=== PATIENT | female | born 1965 | race Caucasian/White ===

== ENCOUNTER → 2019-06-13 17:32 | Outpatient (CLI) | payer BC, SELFPAY ==
--- NOTE | ~2019-06-13 | MM_ITS ---
EXAMINATION: MM screening greg BI w danelle HISTORY: Screening mammogram TECHNIQUE: Craniocaudal and mediolateral oblique 3-D tomosynthesis images were obtained and synthetic 2-D images were generated. CAD analysis was submitted and interpreted. COMPARISON: No prior mammogram is available for comparison at this institution. BREAST PARENCHYMAL COMPOSITION: There are scattered areas of fibroglandular density. FINDINGS: There are 2 clusters of grouped microcalcifications of the right; magnification views are r ecommended. Small circumscribed masses are noted in the posterior aspect of each breast on MLO view, the right no dule included in the craniocaudal view, situated in the outer mid right breast. Bilateral diagnostic mammography is recommended, including magnification views of right sided microca lcifications.. IMPRESSION: 1. Right-sided microcalcifications; right diagnostic mammogram with magnification views is recommende d. Bilateral compression views and ultrasound of bilateral posterior breast masses are recommended. 2. Recommend bilateral diagnostic mammography and bilateral breast ultrasound examination. BI-RADS Category 0: Incomplete: Needs additional imaging evaluation. Reviewed, dictated and finalized at location A. SHAPER TOP IMPRESSION: 1. Right-sided microcalcifications; right diagnostic mammogram with magnificati on views is recommended. Bilateral compression views and ultrasound of bilateral posterior breast masses are recommended. 2. Recommend bilateral diagnostic mammography and bilateral breast ultrasound e xamination. BI-RADS Category 0: Incomplete: Needs additional imaging evaluation.
== END ==
PROVIDERS: PCP Physician Assistant; Visit Provider Physician Assistant
DX: Z12.31 Encounter for screening mammogram for malignant neoplasm of breast (principal); R92.8 Other abnormal and inconclusive findings on diagnostic imaging of breast
CPT/HCPCS: 77063; 77067

== ENCOUNTER → 2019-07-01 09:27 | Outpatient (CLI) | payer BC, SELFPAY ==
--- NOTE | ~2019-07-01 | MMUS_ITS ---
EXAMINATION: MM diagnostic mammo BI, US breast BI limited HISTORY: Follow-up right breast calcifications and bilateral breast masses TECHNIQUE: Additional 3-D tomosynthesis images of were performed and synthetic 2-D images were genera karina. CAD analysis was submitted and interpreted. High resolution bilateral breast ultrasound was perf ormed. COMPARISON: 06/13/2019 FINDINGS: MAMMOGRAPHIC FINDINGS: Breast composed of scattered areas of fibroglandular density. There are masses in the upper outer benito drants of both breasts, most likely benign intramammary lymph nodes. Right breast calcifications have a punctate monomorphic appearance, likely benign. ULTRASOUND: Right breast ultrasound: Normal heterogeneous echotexture without focal solid or cystic mass. Left breast ultrasound: At 2:00, 11 cm from the nipple, there is an 11 mm lymph node. At 12:00, 5 cm from the nipple there is a 8 mm cyst. IMPRESSION: 1. Probable benign right breast calcifications. Benign-appearing bilateral breast masses. No evidence for malignancy in the left breast. 2. Recommend 6 month follow-up right breast ultrasound and diagnostic right mammogram BI-RADS category 3, probably benign findings. Reviewed, dictated and finalized at location A. STICS TEAM LEADER IMPRESSION: 1. Probable benign right breast calcifications. Benign-appearing bilateral darius st masses. No evidence for malignancy in the left breast. 2. Recommend 6 month follow-up right breast ultrasound and diagnostic right [facility] mogram BI-RADS category 3, probably benign findings. IMPRESSION: 1. Probable benign right breast calcifications. Benign-appearing bilateral darius st masses. No evidence for malignancy in the left breast. 2. Recommend 6 month follow-up right breast ultrasound and diagnostic right greg mogram BI-RADS category 3, probably benign findings.
== END ==
PROVIDERS: PCP Physician Assistant; Visit Provider Physician Assistant
DX: R92.8 Other abnormal and inconclusive findings on diagnostic imaging of breast (principal)
CPT/HCPCS: 76642; 77066

== ENCOUNTER 2020-04-19 08:00 | Outpatient (RCR) | payer BC, SELFPAY ==
--- NOTE | 2020-01-23 10:55 | STOPEVAL ---
SPEECH THERAPY INITIAL EVALUATION: Thank you for referring Freda Bhatti to [facility].? The patient is scheduled to be seen for therapy? 1-2x/week for 4 weeks to focus on improving speech and swallow as outlined below. Please review, sign, date and return this plan of care ELIO. I agree with and certify that the following plan of care is medically necessary. Referring Physician Date Attending Provider: PHYSICIAN NOT ON STAFF *ST Outpatient Evaluation Start: 01/21/20 16:37 Freq: Status: Active Protocol: Document 01/21/20 14:30 BECHERERT (Rec: 01/21/20 16:42 BECHERERT [email or web address]) Therapy Assessment Status Assessment Status Assessment Status Evaluation Outpatient Past Medical History Past Medical History Source of Past Medical History Patient Neurological History Hx Neurological Disorders No Significant History Other History Hx Cancer Yes: tongue Hx Chemotherapy Yes Hx Radiation Therapy Yes: 30+ treatment r/t tongue CA; last tx 12-03-19 Evaluation Information Problem Diagnosis tongue CA with surgery Onset 07-08-19 Additional Evaluation Detail Pt presents with a diagnosis of lingual cancer with subsequent surgery on 07-08-2019 , chemotherapy, and radiation. She reports that she completed 2 rounds of chemotherapy and approximately 30 radiation treatments which ended 11-07-19. Pt states that her swallow ability is not too bad stating she has to adjust a little when eating . She is currently on regular liquids and soft foods. She also reports that her spouse can occasionally have difficulty understanding her. She's also noticed that she has difficulty being understood on the telephone. 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 She is currently working from home. Subjective Information Pt c/o dry mouth but is Query Text:As Reported By Patient/ starting to use artificial Family saliva products; she has a (L) sided neck scar from surgery
--- NOTE | 2020-01-30 09:20 | PTOPEVAL ---
PHYSICAL THERAPY EVALUATION AND PLAN OF TREATMENT 01-30-2020 Thank you for referring Freda Bhatti to [facility], for the diagnosis of head/neck lymphedema.? She is scheduled to be seen for Physical Therapy? 2 x/week for 6 weeks. Please review, sign, date and return this plan of care ELIO. I agree with and certify that the following plan of care is medically necessary. Referring Physician Date Attending Provider: Dr. Rich Jackson *PT Outpatient Evaluation Start: 01/30/20 08:11 Document 01/30/20 08:05 RAMOS (Rec: 01/30/20 09:20 RAMOS [id number]) Therapy Assessment Status Assessment Status Assessment Status Evaluation Outpatient Past Medical History Past Medical History Source of Past Medical History Patient Neurological History Hx Neurological Disorders No Significant History Cardiovascular History Hx Hypercholesterolemia Yes: med Respiratory History Hx Other Respiratory Disorders Yes: previous smoker Gastrointestinal History Hx Gastroesophageal Reflux Disease Yes: meds Hx Other Gastrointestinal Disorders Yes: had feeding tube- tender abdomen where was Genitourinary History Hx Other Genitourinary Disorders Yes: constipation due to diet and prev pain meds Musculoskeletal History Hx Arthritis Yes: arthritis L knee; hand and wrist pain; Hx Orthopedic Surgery Yes: R THR; Hx Other Musculoskeletal Disorders Yes: cervical pain; headaches- less than previously had Hematological History Hx Hematological Disorders No Significant History Endocrine History Hx Other Endocrine Disorders Yes: to have thyroid test at next dr jurado HEENT History Hx Sinus Problems Yes: allergies- seasonal allergies- over counter meds Integumentary History Hx Other Skin Disorders Yes: red rash over neck/ treatment area, comes/goes Reproductive History Hx Reproductive Disorders No Significant History Other History Hx Cancer Yes: tongue Hx Chemotherapy Yes Hx Radiation Therapy Yes: 30+ treatment r/t tongue CA; last tx 12-03-19 Evaluation Information Problem Diagnosis lymphedema Onset July 2019 Prior Level of Function Activity Level (Last 3 Months) 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
--- NOTE | 2020-02-24 14:46 | STOPEVAL ---
SPEECH THERAPY PROGRESS NOTE AND PLAN OF CAR UPDATE: Thank you for referring Freda Bhatti to [facility].?The patient is scheduled to be seen for continued speech therapy? 1x/week for 4 weeks. Please review, sign, date and return this plan of care ELIO. I agree with and certify that the following plan of care is medically necessary. Referring Physician Date Attending Provider: PHYSICIAN NOT ON STAFF *ST Outpatient RE Evaluation Start: 01/21/20 16:37 Freq: Status: Active Protocol: Document 02/24/20 09:42 BECHERERT (Rec: 02/24/20 10:00 BECHERERT [email or web address]) Therapy Assessment Status Assessment Status Assessment Status Re-evaluation Outpatient Past Medical History Past Medical History Source of Past Medical History Patient Neurological History Hx Neurological Disorders No Significant History Cardiovascular History Hx Hypercholesterolemia Yes: med Respiratory History Hx Other Respiratory Disorders Yes: previous smoker Gastrointestinal History Hx Gastroesophageal Reflux Disease Yes: meds Hx Other Gastrointestinal Disorders Yes: had feeding tube- tender abdomen where was Genitourinary History Hx Other Genitourinary Disorders Yes: constipation due to diet and prev pain meds Musculoskeletal History Hx Arthritis Yes: arthritis L knee; hand and wrist pain; Hx Orthopedic Surgery Yes: R THR; Hx Other Musculoskeletal Disorders Yes: cervical pain; headaches- less than previously had Hematological History Hx Hematological Disorders No Significant History Endocrine History Hx Other Endocrine Disorders Yes: to have thyroid test at next dr jurado HEENT History Hx Sinus Problems Yes: allergies- seasonal allergies- over counter meds Integumentary History Hx Other Skin Disorders Yes: red rash over neck/ treatment area, comes/goes Reproductive History Hx Reproductive Disorders No Significant History Other History Hx Cancer Yes: tongue Hx Chemotherapy Yes Hx Radiation Therapy Yes: 30+ treatment r/t tongue CA; last tx 12-03-19 Pain Assessment Timing of Pain Assessment Timing of Pain Assessment Assessment Pain Scale Pain Scale Used Numeric (1 - 10) Self Report Pain Assessment Left Lateral Tongue Reported Pain Level 3 Pain Description Burning,Sharp,Stabbing,With Movement Pain Radiation Left Jaw Pain Frequency Intermittent Greatest Pain Intensity 10 Pain Level Goal 1 Pain Aggravating Factors Exercise/Activity Bila
--- NOTE | 2020-03-09 15:42 | PCSTNOTE ---
Pt feels that she has achieved her goals at this point. She doesn't feel like she needs to return for regularly scheduled visits as the plan of care has outlined. Since pt's status has fluctuated, she will not be discharged officially until the plan of care expires on 03-25-20 in the event she has another set back.
--- NOTE | 2020-03-17 16:20 | PTOPEVAL ---
PHYSICAL THERAPY RE-EVALUATION AND UPDATED PLAN OF CARE 03-17-2020 Refer to the clinical summary below for the comparison from initial evaluation. Thank you for referring Freda Bhatti to [facility].? Therapy is to continue? 2 x/week for 5 weeks. Please review, sign, date and return this plan of care ELIO. I agree with and certify that the following plan of care is medically necessary. Referring Physician Date Attending Provider: Dr. Rich Jackson *PT Outpatient Re-Evaluation Document 03/17/20 13:00 RAMOS (Rec: 03/17/20 16:20 RAMOS [email or web address]) Subjective Information Freda reports: is eating Query Text:As Reported By Patient/ better by taking oxycodone Family before eating; still eating soft foods, continues to have pain, but less; continues to have headaches, feel scar and neck are still really tight and was doing better moving her tongue, then when moved mouth wrong one day, there was a pop and now tighter on the side of her tongue. She has been using her home intermittent compression pump and is working with the insurance to obtain the night garment. Also trying to get a wedge to sleep on; She wants to continue PT treatment. Pain Assessment Timing of Pain Assessment Timing of Pain Assessment Assessment Pain Scale Pain Scale Used Numeric (1 - 10) Self Report Pain Assessment Left Lateral Tongue Reported Pain Level 3 Lowest Pain Intensity 3 Greatest Pain Intensity 7 Other Pain Aggravating Factors eating- taking pain meds prior to eating; helps pain with meals Additional Pain Comments headaches daily last few minutes to 30 minutes, ease with tylenol Bilateral Neck Reported Pain Level 3 Pain Score Pain Score 3,3: Self Report Interventions Used Interventions Used By Clinicians Exercise Cervical and Lumbar ROM Cervical ROM Cervical ROM Comments sitting active cervical rotation to the R 60'/ L 60'- both report of tightness in neck Lymphedema Evaluation Skin Inspection Location Head/Neck/Face Skin Observations Radiation Discoloration Tissue Texture
--- NOTE | 2020-03-29 14:29 | PCSTNOTE ---
SPEECH THERAPY DISCHARGE: Attending Provider: PHYSICIAN NOT ON STAFF Patient:rFeda Bhatti Date of :1965 Pt presented with a diagnosis of lingual cancer with subsequent surgery on 07-08-2019, chemotherapy, and radiation. She reported that she completed 2 rounds of chemotherapy and approximately 30 radiation treatments which ended 11-07-19. Pt stated her swallow ability was not too bad stating she had to adjust a little when eating . She is currently on regular liquids but a soft diet. She also reported that her spouse occasionally has difficulty understanding her and has decreased intelligibility on the telephone. 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 Pt c/o dry mouth but has started to use artificial saliva products; a (L) sided neck scar was noted from surgery that took tissue from that area and replaced in her tongue. She reported decreased neck ROM and (R) sided lymphedema. She stated it feels like someone has their hands around her neck. Upon initial evaluation, the pt presented with mild dysarthria and dysphagia with oral stage involvement as well as potential pharyngeal involvement. Pt was taught HEP/compensatory strategies for improving speech intelligibility as well as swallowing exercises as it is felt the pt may have future potential for increased of dysphagia due to the 30 radiation treatments. Pt completed 6 sessions and is independent with the HEP. She was encouraged to continue HEP (especially swallow exercises). Pt verbalized and demonstrated understanding. Pt feels that she has achieved her goals and doesn't need to return for any further treatments. Since pt's status briefly fluctuated i.e. mouth pain which caused temporary increased slurring, she was not discharged officially until the plan of care on 03-25-20 in the event she has another set back. [ End ] Patient has not returned for any further treatments since 03/09/2020, therefore, she will be discharged at this time. The goals have been met. Thank you for referring this patient to [facility]. Please review, sign, date and return this discharge summary ELIO. I have been updated about the patient's current status and I agree with discharge from the above service at this time. Referring Physician Date
--- NOTE | 2020-04-19 08:53 | PTOPEVAL ---
PHYSICAL THERAPY DISCHARGE 04-19-2020 Refer to the clinical summary below for the comparison to the last reevaluation. Mrs. Bhatti agrees to today's discharge from PT services. Thank you for referring Freda Bhatti to [facility].? Please review, sign, date and return this discharge ELIO. I agree with and certify that the following plan of care is medically necessary. Referring Physician Date Attending Provider: Dr. Rich Jackson PT Outpatient Discharge Document 04/19/20 08:05 RAMOS (Rec: 04/19/20 08:53 RAMOS [email or web address]) Subjective Information Freda reports: feels like Query Text:As Reported By Patient/ she has plateaued with her Family improvements; has been using her home pump, doing her mouth and neck exercises and self massage; has the tape to put on her neck; has not gotten the night garment or wedge for sleeping yet--waiting to see if her insurance will pay for it; has been eating a little more, still taking pain med before eating, still using the protein drinks for nutrition; have had headaches less-- about 3 x/ last week, did not take tylenol every time, headaches last about 30 minutes; 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 Pain Assessment Timing of Pain Assessment Timing of Pain Assessment Assessment Pain Scale Pain Scale Used Numeric (1 - 10) Self Report Pain Assessment Left Lateral Tongue Reported Pain Level 2 Pain Description Soreness,Tender on Palpation, Tightness Radicular Pain Location headaches 3x/wk, last about 30 min Pain Frequency Chronic,Continuous Other Pain Description L neck-anterior and posterior, base tongue, mandible and tight over incision Lowest Pain Intensity 2 Greatest Pain Intensity 8 Pain Aggravating Factors Exercise/Activity Other Pain Aggravating Factors eating; issues with getting neck comfortable with sleeping Pain Behaviors Grimacing,Guarding Bilateral Neck Reported Pain Level 2 Pain Frequency Chronic Pain Score Pain Score
== END 2020-04-19 10:54 | disposition home or self-care (01) ==
LOC: ANHPT 08:00
PROVIDERS: PCP Physician Assistant
DX: C02.9 Malignant neoplasm of tongue, unspecified (principal); R47.9 Unspecified speech disturbances; I89.0 Lymphedema, not elsewhere classified
CPT/HCPCS: 29581; 92507; 92522; 92526; 92610; 97016; 97110; 97140; 97162

== ENCOUNTER → 2020-05-10 08:01 | Outpatient (CLI) | payer BC, SELFPAY ==
--- NOTE | ~2020-05-10 | MM_ITS ---
EXAMINATION: MM diagnostic greg RT w danelle HISTORY: Follow-up for probably benign right breast calcifications TECHNIQUE: 3-D tomosynthesis images of the right breast were performed and synthetic 2-D images were generated. Magnification views are also obtained. CAD analysis was submitted and interpreted. COMPARISON: 07/01/2019, 06/13/2019 BREAST PARENCHYMAL COMPOSITION: The breasts are heterogeneously dense, which may obscure small masses . FINDINGS: There are two stable groups of punctate and likely dystrophic calcifications in the upper o uter quadrant of the breast. There is been no suspicious interval change. No suspicious mass or archi tectural distortion are identified. IMPRESSION: 1. Stable, probably benign right breast calcifications. 2. Given one year of interval stability, recommend 12 month followup right diagnostic mammogram. Of n ote, patient is due for left breast screening in one month. BI-RADS category 3, probably benign findings. Reviewed, dictated and finalized at location A. ER OVER IMPRESSION: 1. Stable, probably benign right breast calcifications. 2. Given one year of interval stability, recommend 12 month followup right diag nostic mammogram. Of note, patient is due for left breast screening in one radha h. BI-RADS category 3, probably benign findings.
== END ==
PROVIDERS: PCP Physician Assistant; Visit Provider Physician Assistant
DX: R92.8 Other abnormal and inconclusive findings on diagnostic imaging of breast (principal)
CPT/HCPCS: 77061; 77065; G0279

== ENCOUNTER → 2020-07-03 01:15 | Outpatient (CLI) | payer BC, SELFPAY ==
[2020-07-03 23:34] LABS: SARS-CoV-2 RNA PCR Negative
== END ==
PROVIDERS: PCP Physician Assistant; Visit Provider Internal Medicine Gastroenterology
DX: Z01.812 Encounter for preprocedural laboratory examination (principal); Z20.822 Contact with and (suspected) exposure to COVID-19
CPT/HCPCS: C9803; U0003; U0005

== ENCOUNTER → 2020-07-21 14:18 | Outpatient (CLI) | payer BC, SELFPAY ==
--- NOTE | ~2020-07-21 | MM_ITS ---
EXAMINATION: MM screening greg LT w danelle HISTORY: Screening TECHNIQUE: Craniocaudal and mediolateral oblique 3-D tomosynthesis images were obtained and synthetic 2-D images were generated. CAD analysis was submitted and interpreted. COMPARISON: 06/13/2019 BREAST PARENCHYMAL COMPOSITION: There are scattered areas of fibroglandular density. FINDINGS: There is no evidence of suspicious mass, calcification, or architectural distortion to sugg est malignancy in the left breast. There has been no suspicious interval change. IMPRESSION: 1. No mammographic evidence of malignancy. 2. Recommend routine screening mammography in one year. BI-RADS Category 1: Negative Reviewed, dictated and finalized at location A.
== END ==
PROVIDERS: PCP Physician Assistant; Visit Provider Physician Assistant
DX: Z12.31 Encounter for screening mammogram for malignant neoplasm of breast (principal)
CPT/HCPCS: 77063; 77067

== ENCOUNTER → 2021-11-01 16:46 | Outpatient (CLI) | payer BC, SELFPAY ==
--- NOTE | ~2021-11-01 | MM_ITS ---
EXAMINATION: MM screening [facility] BI w danelle HISTORY: Screening TECHNIQUE: Craniocaudal and mediolateral oblique 3-D tomosynthesis images were obtained and synthetic 2-D images were generated. CAD analysis was submitted and interpreted. COMPARISON: Comparison to multiple prior studies sequentially, with oldest reviewed study dated 11/2019. BREAST PARENCHYMAL COMPOSITION: There are scattered areas of fibroglandular density. FINDINGS: Stable benign-appearing breast calcifications. There is no evidence of suspicious mass, jonny cification, or architectural distortion to suggest malignancy in either breast. There has been no naida picious interval change. IMPRESSION: 1. No mammographic evidence of malignancy. 2. Recommend routine screening mammography in one year. BI-RADS Category 2: Benign finding(s). Reviewed, dictated and finalized at location A.
== END ==
PROVIDERS: PCP Physician Assistant; Visit Provider Physician Assistant
DX: Z12.31 Encounter for screening mammogram for malignant neoplasm of breast (principal)
CPT/HCPCS: 77063; 77067

== ENCOUNTER 2022-01-20 09:26 | Emergency (ER) | payer BC, SELFPAY ==
[2022-01-20] VITALS (8 sets, daily range): BP systolic 98–146; BP diastolic 80–103; PULSE 64–78; RESP 16–18; TEMP 36.5–36.8; O2SAT 95–98
--- NOTE | ~2022-01-20 | CT_ITS ---
EXAMINATION: CT abdomen pelvis w con DATE: 01/20/2022 11:26 INDICATION: Left lower quadrant abdominal pain TECHNIQUE: Computed tomography (CT) of the abdomen and pelvis was performed with 100 mL Omnipaque-350 intravenous contrast. Automated exposure control and iterative reconstruction technique were employe d. The dose-length product was 354.76 mGy-cm. COMPARISON: None FINDINGS: Mild discoid atelectasis in the bilateral lower lungs. Heart size is normal. No pericardial or pleura l effusion. Liver, gallbladder, spleen, pancreas and bilateral adrenal glands are normal. Bilateral r enal cysts, the largest measuring 2.8 cm in the right kidney. There is moderate colonic diverticulosi s with a sigmoid predominance. There is no adjacent inflammatory change to suggest diverticulitis. S mall bowel and appendix are normal. Bladder, uterus and bilateral adnexa are unremarkable. No free in traperitoneal gas or fluid. No pathologically enlarged abdominal or pelvic lymphadenopathy. Mild lumb ar spondylosis. Right total hip arthroplasty. IMPRESSION: 1. No acute intra-abdominal/pelvic process. 2. Diverticulosis. Reviewed, dictated and finalized at location A.
--- NOTE | 2022-01-20 10:09 | ED.ABDPAIN ---
HPI - Abdominal Pain General Chief Complaint: Abdominal Pain Stated Complaint: constipation Time Seen by Provider: 01/20/22 09:54 Source: patient and RN notes reviewed Mode of arrival: ambulatory Limitations: no limitations History of Present Illness HPI narrative: This is a 56 year old female who presents for evaluation of abdominal pain and constipation. PAtient states she normally has large bowel movement every 3 days. She has been having bowel movements but they have been small amounts. She reports small bowel movement today. She also reports mild left lower abdominal pain fo a [address] [facility] but she was referred to ER. She denies nausea, vomiting, dysuria, hematuria, fever or chills. She reports pain 06/16. Related Data Home Medications Medication Instructions Recorded Confirmed alprazolam 0.5 mg tablet 0.5 mg PO TID PRN Anxiety 06/21/20 06/21/20 atorvastatin 10 mg tablet 10 mg PO HS 06/21/20 06/21/20 bupropion HCl 300 mg 24 hr tablet, 300 mg PO DAILY 06/21/20 06/21/20 extended release escitalopram oxalate 20 mg tablet 20 mg PO HS 06/21/20 06/21/20 esomeprazole magnesium 40 mg 40 mg PO DAILY 06/21/20 06/21/20 capsule,delayed release gabapentin 300 mg capsule 300 mg PO TID 06/21/20 06/21/20 trazodone 50 mg tablet 50 mg PO HS 06/21/20 06/21/20 Allergies Allergy/AdvReac Type Severity Reaction Status Date / Time adhesive Allergy Rash Verified 01/20/22 10:31 SEASONAL ALLERGIES Allergy Mild Sneezing Uncoded 01/20/22 10:31 UNKNOWN ABX Allergy RASH Uncoded 01/20/22 10:31 Review of Systems Review of Systems: All systems reviewed & are unremarkable except as noted in HPI and below Constitutional: Constitutional: Denies chills, Denies fatigue and Denies fever(s) Gastrointestinal: Gastrointestinal: Reports abdominal pain, Reports constipation, Denies nausea and Denies vomiting Genitourinary: Genitourinary: Denies dysuria, Denies pelvic pain and Denies flank pain Musculoskeletal: Musculoskeletal: Reports back pain PMFSH Past Medical History Medical History (Updated 01/20/22 @ 12:02 by Jennifer Mg MD) History of tongue cancer Surgical History Surgical History (Updated 01/20/22 @ 12:00 by Jennifer Mg MD) S/P partial glossectomy Social History Social History Smoking packs per day: 1 Smoking cigarettes per day: 20.0 Years smoked: 30 Smoking pack-years: 30.00 Smoking status: Former smoker Gender identity (if verbalized by the patient): Female Spiritual care concerns: No Exam Const: General: no acute distress and alert Nutritional Appearance: well nourished Orientation/consciousness: patient oriented x3 HENMT: Head: normal to inspection Eyes: EOM: EOMs intact bilaterally Chest: Chest palpation & inspection: normal inspection of the chest Resp: Effort & Inspection: normal respiratory effort Auscultation: clear to auscultation bilaterally Cardio: Rate: regular rate Rhythm: regular rhythm Heart sounds: no murmurs GI: GI Palp: Yes Soft to palpation, Yes Tenderness to palpation present (GI) (LLQ), No Guarding due to palpation present (GI) and No Rigid due to palpation Auscultation: normal bowel sounds Back/Spine/Pelvis: Back: no CVA tenderness Skin: General skin exam: normal color Rashes: no rashes Neuro: General: patient oriented x3, moves all extremities and CN's II-XI intact bilaterally Extrem: General: normal to inspection Psych: Mental Status: mental status grossly normal Course Reevaluation(s) Reevaluation #1: I Discussed with patient labs and CT are unremarkable. I Discussed discharge plan and follow up with PCP for possible GI referral. Date: 01/20/22 Time: 12:00 Vital Signs Vital signs: Vital Signs Temperature 97.7 F 01/20/22 09:30 Pulse Rate 78 01/20/22 09:30 Respiratory Rate 16 01/20/22 09:30 Blood Pressure 146/103 H 01/20/22 09:30 Pulse Oximetry 98 01/20/22 09:30 Oxygen Delivery Room Air
[2022-01-20 10:21] LABS: Basophils Percent Auto 0.4 % (0.2-1.2); Eosinophils Absolute Auto 0.1 K/mm3 (0-0.3); Eosinophils Percent Auto 2.1 % (0-4.4); Hematocrit 40.3 % (37.0-47.0); Immature Granulocyte Absolute 0.02 K/mm3 (0.00-0.031); Immature Granulocyte Percent A 0.4 % (0-0.5); Lymphocytes Absolute Auto 0.65 K/mm3 (0.9-3.2); Lymphocytes Percent Auto 13.9 % (18.3-44.2); Mean Corpuscular HGB Conc 32.3 g/dl (32-36); Mean Platelet Volume 9.5 fl (7.4-10.4); Monocytes Absolute Auto 0.4 K/mm3 (0.1-0.6); Monocytes Percent Auto 9.4 % (2.6-8.5); Neutrophils Absolute Auto 3.4 K/mm3 (1.3-6.7); Neutrophils Percent Auto 73.8 % (45.5-73.1); Platelet Count Result 189 k/mm3 (150-375); Red Cell Distribution Width 12.3 % (11.5-14.5); White Blood Count 4.7 K/mm3 (4.5-10.0)
[2022-01-20 10:23] LABS: Add Urine Microscopic? YES; Appearance Urine Clear (Clear); Bilirubin Urine Negative (Negative); Blood Urine Trace-Intact (Negative); Color Urine Yellow (Yellow); Glucose Urine UA Negative (Negative); Ketones Urine Negative (Negative); Leukocyte Esterase Ur Negative LEU/UL (Negative); Nitrate Urine Negative (Negative); Protein Urine Negative (Negative); Specific Grav Ur 1.015 (1.001-1.035); Urobilinogen Urine 0.2 mg/dL (<2.0); pH Urine 5.5 (5.0-9.0)
[2022-01-20 10:30] LABS: RBC Urine 0-2 /hpf (0-2); Squamous Epithelial Cell Urine Rare /hpf (Few); WBC Urine 0-3 /hpf
[2022-01-20 10:31] LABS: Alanine Aminotransferase 13 U/L (6-35); Albumin Level 4.6 g/dL (3.5-5.1); Alkaline Phosphatase 104 U/L (38-126); Anion Gap 11 mmol/L (8-16); Aspartate Amino Transferase 23 U/L (14-36); Bilirubin,Total 0.3 mg/dL (0.2-1.3); Blood Urea Nitrogen 13 mg/dL (7-17); Calcium 8.9 mg/dL (8.4-10.2); Carbon Dioxide 28 mmol/L (22-30); Chloride 100 mmol/L (98-107); Estimated CRCL calculation 60 ml/min; Estimated Glomerular Filt Rate > 60; Glucose 94 mg/dL (65-110); Lipase 87 U/L (23-300); Potassium 4.2 mmol/L (3.4-5.0); Sodium 139 mmol/L (137-145)
--- NOTE | 2022-01-20 11:10 | PC.NURSE ---
Pt reports going through menopause, bedside cancelled.
--- NOTE | 2022-01-20 11:24 | PC.NURSE ---
Off floor to radiology
== END 2022-01-20 12:13 | disposition home or self-care (01) ==
PROVIDERS: Emergency Provider General Practice; PCP Physician Assistant
DX: K59.00 Constipation, unspecified (principal); Z85.810 Personal history of malignant neoplasm of tongue; Z90.49 Acquired absence of other specified parts of digestive tract; Z87.891 Personal history of nicotine dependence; K57.90 Diverticulosis of intestine, part unspecified, without perforation or abscess without bleeding
CPT/HCPCS: 36415; 74177; 80053; 81001; 83690; 85025; 99284; Q9967

== ENCOUNTER → 2023-01-26 15:46 | Outpatient (CLI) | payer BC, SELFPAY ==
--- NOTE | ~2023-01-26 | MM_ITS ---
EXAMINATION: MM screening [facility] BI w danelle HISTORY: Screening TECHNIQUE: Craniocaudal and mediolateral oblique 3-D tomosynthesis images were obtained and synthetic 2-D images were generated. CAD analysis was submitted and interpreted. COMPARISON: Comparison to multiple prior studies sequentially, with oldest reviewed study dated 11/2019. BREAST PARENCHYMAL COMPOSITION: There are scattered areas of fibroglandular density. FINDINGS: There is no evidence of suspicious mass, calcification, or architectural distortion to sugg est malignancy in either breast. There has been no suspicious interval change. IMPRESSION: 1. No mammographic evidence of malignancy. 2. Recommend routine screening mammography in one year. BI-RADS Category 1: Negative Reviewed, dictated and finalized at location A.
== END ==
PROVIDERS: PCP Physician Assistant; Visit Provider Physician Assistant
DX: Z12.31 Encounter for screening mammogram for malignant neoplasm of breast (principal)
CPT/HCPCS: 77063; 77067

== ENCOUNTER 2023-09-03 10:26 | Outpatient (CLI) | payer BC, SELFPAY ==
--- NOTE | ~2023-09-03 | XR_ITS ---
EXAMINATION: [id number] Exam Date/Time: 09/03/2023 10:35 CDT HISTORY: Rib pain on right side Comparison: CT lung screening 05/20/2019. RESULT: Lines, tubes, and devices: None. Lungs and pleura: Linear bibasilar opacities. Cardiothymic silhouette: Stable. Other: No acute osseous or upper abdominal finding. IMPRESSION: Bibasilar atelectasis/scar. No acute osseous finding in the right ribs. Reviewed, dictated and finalized at location K.
== END 2023-09-03 10:27 ==
LOC: MICIMG 10:30
PROVIDERS: PCP Physician Assistant; Visit Provider Physician Assistant
DX: R07.81 Pleurodynia (principal); R91.8 Other nonspecific abnormal finding of lung field
CPT/HCPCS: 71101

== ENCOUNTER 2024-08-05 14:00 | Outpatient (CLI) | payer BC, SELFPAY ==
--- NOTE | ~2024-08-05 | MM_ITS ---
EXAMINATION: MM screening [facility] BI w danelle HISTORY: Screening TECHNIQUE: Craniocaudal and mediolateral oblique 3-D tomosynthesis images were obtained and synthetic 2-D images were generated. CAD analysis was submitted and interpreted. COMPARISON: Comparison to multiple prior studies sequentially, with oldest reviewed study dated 07/01. BREAST PARENCHYMAL COMPOSITION: Not dense: There are scattered areas of fibroglandular density. FINDINGS: There is no evidence of suspicious mass, calcification, or architectural distortion to sugg est malignancy in either breast. There has been no suspicious interval change. IMPRESSION: 1. No mammographic evidence of malignancy. 2. Recommend routine screening mammography in one year. BI-RADS Category 1: Negative Reviewed, dictated and finalized at location A.
== END 2024-08-05 14:01 | disposition home or self-care (01) ==
LOC: MICIMG 14:01
PROVIDERS: PCP Physician Assistant; Visit Provider Physician Assistant
DX: Z12.31 Encounter for screening mammogram for malignant neoplasm of breast (principal)
CPT/HCPCS: 77063; 77067

== ENCOUNTER 2024-08-29 13:55 | Outpatient (CLI) | payer BC, SELFPAY ==
--- NOTE | ~2024-08-29 | CT_ITS ---
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 TECHNIQUE: Multiple contiguous axial images of the chest was performed without the administration of intravenous contrast. This CT examination was performed utilizing dose reduction techniques. DLP: 92 mGy-cm FINDINGS/OBSERVATIONS: LUNG:Trace bibasilar atelectasis. Redemonstration of two 4 mm nodules within the left lower lobe (axial series, images 72 and 71, lalo red with axial series, images 72 and 75), unchanged from 05/20/2019. The remainder of the lungs are clear. HEART: The heart is of normal size, without pericardial effusion. MEDIASTINUM: No pathologically enlarged or morphologically suspicious lymph nodes are identified within the medias tinum, bilateral axilla, within the soft tissues of the anterior chest wall. SOFT TISSUES OF THE CHEST: Unremarkable. BONES OF THE CHEST: No acute fracture. No lytic or blastic lesions are identified. UPPER ABDOMEN: Small hiatal hernia. Otherwise unremarkable. IMPRESSION: Two 4 mm nodules within the left lower lobe, demonstrating 5 years of stability Lung-RADS category 2: Benign appearance or behavior. Continue annual screening with noncontrast low-d ose chest CT in 12 months. Reviewed, dictated and finalized at location A. IMPRESSION: Two 4 mm nodules within the left lower lobe, demonstrating 5 years of stability Lung-RADS category 2: Benign appearance or behavior. Continue annual screening with noncontrast low-dose chest CT in 12 months.
--- OUTSIDE RECORDS SUMMARY | 2024-08-29 14:02 | XMS_ITS | Encounter Summary ---
Author Organization [facility] Healthcare Address [address] [place] [address] Care Team Providers Care Inspector Repairer Name Role Phone Kristen Calabrese Primary Care Provider [phone] Rich Jackson MD Unavailable [phone] Jozef Reyes DMD Unavailable [phone] Froylan Thakkar MD Unavailable [phone] Owen Epstein NP Primary Care Provider [phone] Kristen Calabrese Primary Care Provider [phone] Encounter Details Date Type Department Care Team (Late st Contact Info) Description 08/15/2019 Telephone [facility] Radiology [address] [place] [address] Katherine Porter RN Social History Tobacco Use Types Packs/Day Years Used Date Smoking Tobacco: Former Cigarettes Smokeless Tobacco: Never Comments:nicotine vape 5mg Alcohol Use Standard Drinks/Week Comments Not Currently 0 (1 standard drink = 0.6 oz pur e alcohol) holidays PHQ-2 Answer Date Recorded PHQ-2 Score 1 05/29/2019 Comments No Sex and Gender Information Value Date Recorded Sex Assigned at Not on file 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 No / Unsure 08/06/2019 11:33 AM CDT documented as of this encounter Plan of Treatment Not on file documented as of this encounter Visit Diagnoses Not on filedocumented in this encounter Care Teams Inspector Repairer Relationship Specialty Start Date End Date Kristen Calabrese PA [address] [place] [address] PCP - General Internal Medicine 09/24/18 07/03/21 Owen Epstein NP [address] [place] [address] PCP - General Nurse Practitioner 07/04/21 08/17/21 Kristen Calabrese PA [address] [place] [address] PCP - General Internal Medicine 08/18/21 Rich Jackson MD [address] [place] [address] Referring Physician Otolaryngology 07/18/19 Jozef Reyes DMD [address] [place] [address] Dentist Dental Analysis Consultant 07/18/19 Froylan Thakkar MD [address] [place] [address] Medical Oncologist/Pewter Finisher Medical Oncology 07/18/19 documented as of this encounter
--- OUTSIDE RECORDS SUMMARY | 2024-08-29 14:02 | XMS_ITS | Data Portability ---
Author Organization [facility], Main Office Address [address] [place] [address] Assessment Encounter Date Assessment Date Assessment LastModified by Organization Details LastModified Time 11/30/2022 11/30/2022 Patient presents knee pain bilaterally left greater than right she has swelling in her left knee does not recall any specific antecedent trauma. The pain is worse with activity somewhat relieved by rest. On exam she has got good motion of her hip good motion of the knee she has an equivocal Aaron's with mild catching but a positive patellar compression test. Neurologically she is grossly intact. Examination of her right knee demonstrates some patellofemoral irritability and inflammation there as well. My impression patient has patellofemoral pain left greater than right. She has got significant swelling of her left knee compared to the right. Will I injected both with 20 mg Kenalog 4 cc 1% lidocaine. For prescription drug management will try prednisone taper. She declined therapy for the present time follow-up in a month to reassess. [email or web address] Not available 11/30/2022 10:00:42 12/28/2022 12/28/2022 Patient returns knee pain bilaterally. 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 She got an excellent response to conservative treatment. She has been essentially feeling fairly well with only minimal pain. She can return to normal activity. Recommend she continue with the activities she can tolerate. If she play sports I would recommend wearing her brace. She can take anti-inflammatory medication or the prednisone that I gave her. If she has any changes or problems she will call otherwise she is dismissed. Not available 12/28/2022 10:26:59 Plan of Treatment Reminders Order Date Submit Date Provider Last Modified By Organization Details Last Modified Time Details Appointments None recorded. Lab None recorded. Referral None recorded. Procedures injection/a spiration joint/bursa (PROC) - in office procedure, administere d by provider 2022 023 [email or web address] In-Office Order, Internal Use Only DO Not Attach Compendium DO Not Attach Compendium, Do Not Delete/merge, [id number] 09:44:40 Surgeries None recorded. Imaging XR, knee, 3 view 2022 023 [email or web address] [facility] [place], [address], [place], [address], 3 10:26:19 Medication Orders Kenalog 10 mg/mL suspension for injection [id number], [address] [place], [address], 3 09:50:14 ropivacaine (PF) 5 mg/mL (0.5 %) injection solution [id number], [address] [place], [address], 3 09:50:14 prednisone 10 mg tablets in a dose pack 2022 023 [id number] [place], [address], 3 09:50:14 Patient TargetsNo targets recorded. Patient InstructionsNo instructions recorded. Reason for Referral None Reported. Results Created Date Observation Date Name Description Value Unit Range Abnormal Flag Note LastModifiedBy Organization Detail LastModifiedTime 12/01/19 23 XR, knee, 3 view No observ ation record ed. [email or web address] [facility] [place] [address], [place], [address], 11/30/2022 10:00:55 Result Notes None recorded. Problems Name Problem SNOMED Code Status Onset Date Resolution Date Notes Provider Name and Address Organization Details Recorded Time Pain of left knee joint 1119869505368 07 Active 2022 Raven Duran null, [facility] [employer] [facility] 3 08:48:58 Pain of bilateral knee joints 0194072662018 04 Active 2022 Demetria Solomon null, [facility] [employer] [facility] 3 09:42:57 Chondromala ralph of bilateral patellas 4544887829071 9100 Active 2022 José Miguel Damico MD [address] [facility], [address], [place], [address], [facility] [employer] [facility] 3 10:12:12 Problem Notes None recorded. Procedures Surgical History Date Name Laterality Status Provider Name and Address Organization Details Recorded Time 3 Ortho - Cortisone Injection completed José Miguel Damico MD [address] [facility], [facility] [address], [place], [address], [facility] [employer] [place] [facility] 11/30/2022 09:58:45 0 Cancer Surgery completed Fabby Garcia CNA [facility] [employer] [place] [facility] 11/30/2022 09:14:18 5 total replacement of hip completed Fabby Garcia CNA [facility] [employer] [place] [facility] 11/30/2022 09:13:58 Imaging Results Imaging Date Name Status LastModified by Organiz ation Details LastModified Time 11/30/2022 XR, knee, 3 view completed demian [facility] [place] [address], [place], [address], 11/30/2022 10:00:55 Procedure Notes None recorded. Medical Equipment None Reported. Allergies No known drug allergies Medications Name Sig Start Date Stop Date Status Note LastModified by Organization Details LastModified Time amoxicillin 500 mg capsule TAKE TAKE 4 CAPSULES BY MOUTH 1 HOUR PRIOR TO APPOINTME NT active Not Available Not Available No t Available prednisone 10 mg tablet PLEASE SEE ATTACHED FOR DETAILED DIRECTION S active Not Available Not Available No t Available trazodone 50 mg tablet TAKE 1 TO 2 TABLETS BY MOUTH 1 - 3 HOURS BEFORE BEDTIME active Not Available Not Available No t Available atorvastati n 10 mg tablet TAKE 1 TABLET BY MOUTH EVERY DAY active Not Available Not Available No t Available levothyroxi ne 25 mcg tablet TAKE 1 TABLET BY MOUTH EVERY DAY active Not Available Not Available No t Available prednisone 10 mg tablets in a dose pack Take 1 tab by mouth, 3 times a day for 3 daysTake 1 tab by mouth 2 times a day for 2 daysTake 1 tab by mouth once a day for 1 day 2022 active Not Available Not Available Not Avai lable alprazolam 0.5 mg tablet TAKE 1 TABLET (0.5 MG TOTAL) BY MOUTH 3 (THREE) TIMES A DAY NEEDED FOR ANXIETY. 11/30 completed Not Available Not Available Not Available Kenalog 10 mg/mL suspension for injection Take 40 mg by injection route. 2022 active [facility]: 0003- [phone]- 20 Not Available Not Available Not Available esomeprazol e magnesium 40 mg capsule,del ayed release TAKE 1 CAPSULE (40 MG TOTAL) BY MOUTH DAILY. active Not Available Not Available No t Available gabapentin 300 mg capsule TAKE 1 CAPSULE BY MOUTH THREE TIMES A DAY active Not Available Not Available No t Available nystatin 100,000 unit/gram topical powder APPLY TOPICALLY 4 TIMES A DAY active Not Available Not Available No t Available albuterol sulfate HFA 90 mcg/actuati on aerosol inhaler INHALE 2 PUFFS BY MOUTH EVERY 4 HOURS NEEDED FOR WHEEZING OR SHORTNESS OF BREATH active Not Available Not Available No t Available fluticasone propionate 50 mcg/actuati on nasal spray,suspe nsion SPRAY 2 SPRAYS INTO EACH NOSTRIL EVERY DAY active Not Available Not Available No t Available clotrimazol e 1 % topical cream APPLY TO AFFECTED AREA TWICE A DAY active Not Available Not Available No t Available bupropion HCl XL 300 mg 24 hr tablet, extended release TAKE 1 TABLET (300 MG TOTAL) BY MOUTH EVERY MORNING. active Not Available Not Available No t Available Vagifem 10 mcg vaginal tablet INSERT 1 TAB PER VAGINA AT BEDTIME 2 TIMES / WEEK active Not Available Not Available No t Available Purelax 17 gram/dose oral powder TAKE 17G BY MOUTH EVERY DAY 11/30 completed Not Available Not Available Not Available ropivacaine (PF) 5 mg/mL (0.5 %) injection solution Take 40 mg by injection route. 2022 active [facility] 24894 -064- 01 Not Available Not Available Not Available Trintellix 20 mg tablet TAKE 1 TABLET BY MOUTH EVERY DAY active Not Available Not Available No t Available Vitals Date Recorded Body height Body mass index (BMI) Body weight Provider Name and Address Organization Details Last Updated DateTime 11/30/2022 165.1 cm 26.3 kg/m2 43037.59 g Fabby Garcia CNA [facility] 11/30/2022 09:09:54 Date Recorded Body height Body mass index (BMI) Body weight Provider Name and Address Organization Details Last Updated DateTime 12/28/2022 165.1 cm 26.3 kg/m2 24544.59 g Fabby Garcia CNA [facility] 12/28/2022 10:13:34 Social History Question Answer Notes LastModified by Organizat ion Details LastModified Time Tobacco Smoking Status Former Smoker RODRIGO Kiran [facility] Wire 11/30/2022 09:13:26 When Did You Quit Smoking? 1-5yearssin celastcigar ette 07-06-2019 [email or web address] Information not available 11/30/2022 Sex: Unknown Functional Status None recorded. Mental Status None recorded. Family History Relationship Description Onset Age of this Age Resolved Age Notes LastModified by Organization Details LastModified Time Father Heart disease [email or web address] Not available 2022 09:12:31 Father Family history of malignant neoplasm [email or web address] Not available 2022 09:12:40 Father Hypertensive disorder [email or web address] Not available 2022 09:12:52 Medical History Condition Response ARTHRITIS Y CANCER: SPECIFY Y OSTEOPOROSIS Y Gynecological HistoryNo gynecological history recorded. Obstetrics History GPAL:G 0 P 0 0 0 0 Past Encounters Encounter ID Performer Location Encounter Start Date Encounter Closed Date Diagnosis/Indication Diagnosis SNOMED-CT Code Diagnosis ICD10 Code Diagnosis Note [id number] José Miguel Damico MD [facility] [place] [address] [place] [address] 11/30/2022 08:43:46 11/30/2022 10:26:19 Pain of left knee joint 2029933032 14602 M25.562 Pain of bi lateral knee joints 8071990752 94434 M25.561 M25.562 Chondromal acia of bilateral patellas 3757647364 9020800 M22.41 M22.42 [id number] José Miguel Damico MD [facility] [place] [address] [place] [address] 12/28/2022 10:11:05 12/28/2022 10:50:15 Pain of left knee joint 8051813313 52659 M25.562 Pain of bi lateral knee joints 7870638384 74375 M25.561 M25.562 Chondromal acia of bilateral patellas 4678599557 0665774 M22.41 M22.42 Health Concerns Section Related Observation LastModified by Organization Detai ls LastModified Time None Recorded Concern Status LastModified by Organization Details LastModified Time None Recorded Advance Directives Directive None Recorded Payers Encounter Date Sequence Insurance Name Policy Number Policy Gutierrez Covered Member ID Gutierrez Member ID Guarantor Name 12/28/2022 1 [facility]: (PPO) [id number] Freda Bhatti [id number] Freda Bhatti Notes Date Note Type Note Provider Name and Address Organization Details Recorded Time 11/30/2022 text/html KneeReported bypatient.Location :anterior Quality:aching; burning; throbbing Severity:moderate Duration:continuou s since onset Timing:chronic; recurrent; intermittent episodes lasting: Context:cannot identify Alleviating Factors:lying down; rest; elevation; stretching Aggravating Factors:twisting; bending/squatting Associated Symptoms:swelling; warmth;popping/cli cking Previous PT:helped a little José Miguel Damico MD [address] [place] [address], [place], [address], Auth0 [facility] 11/30/2022 10:12:27 12/28/2022 text/html Patient returns knee pain right and left. The pain for the most part is gone. She has had a nice response to conservative treatment and feels like she is doing well at this point. José Miguel Damico MD [address], [place] [address], [place], [address], [employer] 12/28/2022 10:27:15 OBGyn Episode No OBEpisode recorded.
--- OUTSIDE RECORDS SUMMARY | 2024-08-29 14:02 | XMS_ITS | Encounter Summary ---
Author Organization [facility] Address [address] [place] [address] Phone Care Team Providers Care Cooling Pipe Inspector Name Role Phone Kristen Calabrese Primary Care Provider [phone] Rich Jackson MD Unavailable [phone] Jozef Reyes DMD Unavailable [phone] Froylan Thakkar MD Unavailable [phone] Owen Epstein NP Primary Care Provider [phone] Kristen Calabrese Primary Care Provider [phone] Encounter Details Date Type Department Care Team (Late st Contact Info) Description 08/05/2019 Orders Only 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 Not on ashok e [...] on filedocumented in this encounter Care Teams Cooling Pipe Inspector Relationship Specialty Start Date End Date Kristen Calabrese PA [address] [place] [address] PCP - General Internal Medicine 09/24/18 07/03/21 Owen Epstein NP [address] [facility] [address] [place] [address] PCP - General Nurse Practitioner 07/04/21 08/17/21 Kristen Calabrese PA [address] [place] [address] PCP - General Internal Medicine 08/18/21 Rich Jackson MD [address] [place] [address] Referring Physician Otolaryngology 07/18/19 Jozef Reyes DMD [address] [place] [address] Dentist Dental Hydroelectric Powerplant Supervisor 07/18/19 Froylan Thakkar MD [address] [place] [address] Medical Oncologist/Wrecking Mechanic Medical Oncology 07/18/19 documented as of this encounter
--- OUTSIDE RECORDS SUMMARY | 2024-08-29 14:03 | XMS_ITS | Referral Summary ---
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 Department of Otolaryngology Head-Neck Division [facility] [address] [address] Rich Jackson MD Squamous cell carcinoma of ventral tongue (CMS/HCC) (HCC) (Primary Dx) 08/06/2024 Results Follow-Up [facility] Medicine [address] [place] [address] Kristen Calabrese PA 08/06/2024 Orders Only [facility] [address] [place] [address] Provider, MD Kerri from Last 3 Months Allergies Active Allergy Reactions Criticality Noted Date Comments Penicillin V Potassium Rash,Unknown Medium 12/04/2018 Medications buPROPion XL (WELLBUTRIN XL) 300 mg 24 hr tablet TAKE 1 TABLET (300 MG TOTAL) BY MOUTH EVERY MORNING. 90 tablet 1 022 Active nystatin powder APPLY TOPICALLY 4 TIMES A DAY 60 g 1 023 Active clotrimazole 1 % cream APPLY TO AFFECTED AREA TWICE A DAY 30 g 1 023 Active traZODone (DESYREL) 50 mg tablet TAKE 1-2 TABS BY MOUTH 1-3 HOURS BEFORE BEDTIME 180 tablet 1 023 Active albuterol HFA (PROVENTIL HFA,VENTOLIN HFA,PROAIR HFA) 90 mcg/actuation inhaler INHALE 2 PUFFS BY MOUTH EVERY 4 HOURS NEEDED FOR WHEEZING OR SHORTNESS OF BREATH 8.5 each 3 023 Active Trintellix 20 mg tablet Take 1 tablet (20 mg total) by mouth daily 024 Active cyclobenzaprine (FLEXERIL) 10 mg tablet Take 1 tablet (10 mg total) by mouth 3 (three) times a day as needed for muscle spasms 20 tablet 024 Active atorvastatin (LIPITOR) 10 mg tabletIndications :Mixed hyperlipidemia TAKE 1 TABLET BY MOUTH EVERY DAY 90 tablet 1 024 Active meloxicam (MOBIC) 7.5 mg tablet TAKE 1 TABLET BY MOUTH EVERY DAY 30 tablet [address] (NexIUM) 40 mg capsuleIndication s:Gastroesophagea l reflux disease with esophagitis without hemorrhage TAKE 1 CAPSULE (40 MG TOTAL) BY MOUTH DAILY. 100 capsule 1 025 Active levothyroxine (SYNTHROID) 25 mcg tabletIndications :Acquired hypothyroidism TAKE 1 TABLET BY MOUTH EVERY DAY 100 tablet 025 Active amoxicillin 500 mg tablet TAKE 4 TABLETS BY MOUTH 1 HOUR PRIOR TO APPOINTMENT 025 Active predniSONE (DELTASONE) 10 mg tablet 025 Active sertraline (ZOLOFT) 25 mg tablet Take 1 tablet (25 mg total) by mouth daily 025 Active gabapentin (NEURONTIN) 300 mg capsuleIndication s:Neck pain Take 1 capsule (300 mg total) by mouth 3 (three) times a day 300 capsule 025 Active fluticasone propionate (FLONASE) 50 mcg/actuation nasal spray Administer 2 sprays into each nostril daily 48 mL 025 Active ALPRAZolam (XANAX) 0.5 mg tablet Take 1 tablet (0.5 mg total) by mouth 3 (three) times a day as needed for anxiety 20 tablet 025 Active fluticasone propionate (FLONASE) 50 mcg/actuation nasal spray Administer 2 sprays into each nostril daily 48 mL 3 023 2024 Discontinued(R eorder) gabapentin (NEURONTIN) 300 mg capsuleIndication s:Neck pain TAKE 1 CAPSULE BY MOUTH THREE TIMES A DAY 270 capsule 1 023 2024 Discontinued(R eorder) ALPRAZolam (XANAX) 0.5 mg tablet Take 1 tablet (0.5 mg total) by mouth 3 (three) times a day as needed for anxiety 20 tablet 024 2024 Discontinued(R eorder) levothyroxine (SYNTHROID) 25 mcg tabletIndications :Acquired hypothyroidism TAKE 1 TABLET BY MOUTH EVERY DAY 90 tablet 1 024 2024 Discontinued Active Problems Problem Noted Date Diagnosed Date Need for influenza vaccination 03/28/2024 Assessment & Plan (03/28/2024 11:29 AM CARDIAC NURSE PRACTITIONER): Flu vaccine updated in the office today Breast cancer screening by mammogram 03/28/2024 Assessment & Plan (03/28/2024 11:29 AM CARDIAC NURSE PRACTITIONER): Mammogram order provided BMI 27.0-27.9,adult 2023 Assessment & Plan (03/28/2024 7:14 AM CARDIAC NURSE PRACTITIONER): Weight/BMI is in healthy range. Continue healthy lifestyle to maintain. Assessment & Plan (09/10/2023 7:41 AM CDT): Weight/BMI is in healthy range. Continue healthy lifestyle to maintain. Assessment & Plan (08/03/2023 7:50 AM CDT): Weight/BMI is in healthy range. Continue healthy lifestyle to maintain. Assessment & Plan (2023 10:32 AM CARDIAC NURSE PRACTITIONER): Weight/BMI is in healthy range. Continue healthy lifestyle to maintain. Menopause 09/11/2022 Assessment & Plan (03/28/2024 11:29 AM CARDIAC NURSE PRACTITIONER): Check DEXA Assessment & Plan (09/11/2022 9:54 PM CDT): Check DEXA Vaginal atrophy 09/11/2022 Assessment & Plan (09/11/2022 9:58 PM CDT): This is a significant, separately identifiable problem that was evaluated and managed on the same day as the wellness exam Patient complains of vaginal dryness that has been increasing over the last few years. Discussed estrogen risks benefits alternatives side effects and proper use. Interested in using suppositories. Vagifem 10 is every night at bedtime x2 weeks and then maintenance of twice a week. SOB (shortness of breath) 06/14/2022 Assessment & Plan (06/14/2022 8:33 AM CARDIAC NURSE PRACTITIONER): This is a significant, separately identifiable problem that was evaluated and managed on the same day as the wellness exam Mild shortness of breath. Probably has COPD although has not been tested with PFTs. Has a longstanding history of smoking but has quit. Has done in inhaler in the past with good results. Will provide an albuterol and watch her symptoms carefully. If they persist will consider adding additional medication and or PFTs. Patient is in agreement with plan Annual physical exam 11/01/2021 Assessment & Plan (03/28/2024 11:28 AM CARDIAC NURSE PRACTITIONER): Encouraged healthy lifestyle, good nutrition and exercise. Encouraged Calcium and Vitamin D and weight bearing exercise for bone health. Reviewed immunizations Reviewed age appropirate screenings. Assessment & Plan (2023 10:32 AM CARDIAC NURSE PRACTITIONER): Encouraged healthy lifestyle, good nutrition and exercise. Encouraged Calcium and Vitamin D and weight bearing exercise for bone health. Reviewed immunizations Reviewed age appropirate screenings. Assessment & Plan (06/14/2022 8:31 AM CARDIAC NURSE PRACTITIONER): Encouraged healthy lifestyle, good nutrition and exercise. Encouraged Calcium and Vitamin D and weight bearing exercise for bone health. Reviewed immunizations Reviewed age appropirate screenings. Assessment & Plan (11/01/2021 7:09 PM CDT): Encouraged healthy lifestyle, good nutrition and exercise. Encouraged Calcium and Vitamin D and weight bearing exercise for bone health. Reviewed immunizations Reviewed age appropirate screenings. Chronic bilateral thoracic back pain 08/18/2021 Assessment & Plan (08/21/2021 10:47 AM CDT): Patient complains of chronic pain but has not had any of this worked up. Recommend getting x-rays of her neck and thoracic back as well as the knee so that we can begin trying to work this up in get her improvement. She may use anti-inflammatory as needed. She may use topical Voltaren gel to the area as needed. Advised she probably would benefit greatly from physical therapy but she is not interested in trying this Acquired hypothyroidism 05/25/2021 Assessment & Plan (03/28/2024 11:29 AM CARDIAC NURSE PRACTITIONER): Continue levothyroxine. Monitor labs. Assessment & Plan (08/19/2023 10:26 AM CDT): Continue levothyroxine 25 mcg. Awaiting lab results Assessment & Plan (2023 10:32 AM CARDIAC NURSE PRACTITIONER): Continue levothyroxine. Monitor labs. Assessment & Plan (06/14/2022 8:31 AM CARDIAC NURSE PRACTITIONER): Continue levothyroxine. Monitor labs. Assessment & Plan (11/01/2021 7:07 PM CDT): Continue levothyroxine. Monitor labs. Assessment & Plan (08/21/2021 10:43 AM CDT): Continue levothyroxine. Monitor labs. Assessment & Plan (06/26/2021 5:40 PM CARDIAC NURSE PRACTITIONER): Patient's TSH (thyroid stimulating hormone) is elevated. This means the pts body is trying to stimulate more of the thyroid hormone because there is enough present. This is known as hypothyroidism. Hypothyroidism can create symptoms of fatigue, constipation, weight gain, dry hair dry skin---it basically slows everything down. I would like pt to start levothyroxine, it is a thyroid replacement, to help returned the TSH to normal. Will start with levothyroxine 25 mcg, 1st thing in the morning. Is important to take it on an empty stomach and not eat or drink for about an hour to have the best absorption. I want to recheck thyroid level in 4 weeks to see if this is the proper dose. Fatigue 01/28/2021 Assessment & Plan (03/28/2024 11:29 AM CARDIAC NURSE PRACTITIONER): Probably multifactorial. Check labs and followup to re-evaluate Assessment & Plan (2023 10:32 AM CARDIAC NURSE PRACTITIONER): Probably multifactorial. Check labs and followup to re-evaluate Assessment & Plan (06/14/2022 8:31 AM CARDIAC NURSE PRACTITIONER): Probably multifactorial. Check labs and followup to re-evaluate Assessment & Plan (08/21/2021 10:43 AM CDT): Probably multifactorial. Check labs and followup to re-evaluate Assessment & Plan (01/28/2021 9:43 AM CDT): Probably multifactorial. Check labs and followup to re-evaluate Pre-diabetes 02/28/2020 Assessment & Plan (03/28/2024 11:29 AM CARDIAC NURSE PRACTITIONER): Pre-diabetes/hyperglycemia is a precursor to Dm. Stressed importance of working on diet (decrease your simple sugars and one carbohydrate with each meal) and increase you exercise to achieve weight loss and this will help prevent you from progressing to diabetes. Assessment & Plan (08/19/2023 10:25 AM CDT): Pre-diabetes/hyperglycemia is a precursor to Dm. Stressed importance of working on diet (decrease your simple sugars and one carbohydrate with each meal) and increase you exercise to achieve weight loss and this will help prevent you from progressing to diabetes. Follow-up when labs are available Assessment & Plan (2023 10:31 AM CARDIAC NURSE PRACTITIONER): Pre-diabetes/hyperglycemia is a precursor to Dm. Stressed importance of working on diet (decrease your simple sugars and one carbohydrate with each meal) and increase you exercise to achieve weight loss and this will help prevent you from progressing to diabetes. Assessment & Plan (06/14/2022 8:30 AM CARDIAC NURSE PRACTITIONER): Pre-diabetes/hyperglycemia is a precursor to Dm. Stressed importance of working on diet (decrease your simple sugars and one carbohydrate with each meal) and increase you exercise to achieve weight loss and this will help prevent you from progressing to diabetes. Assessment & Plan (11/01/2021 7:07 PM CDT): Pre-diabetes/hyperglycemia is a precursor to Dm. Stressed importance of working on diet (decrease your simple sugars and one carbohydrate with each meal) and increase you exercise to achieve weight loss and this will help prevent you from progressing to diabetes. Assessment & Plan (01/28/2021 9:42 AM CDT): Pre-diabetes/hyperglycemia is a precursor to Dm. Stressed importance of working on diet (decrease your simple sugars and one carbohydrate with each meal) and increase you exercise to achieve weight loss and this will help prevent you from progressing to diabetes. Assessment & Plan (07/17/2020 8:27 PM CARDIAC NURSE PRACTITIONER): Pre-diabetes/hyperglycemia is a precursor to Dm. Stressed importance of working on diet (decrease your simple sugars and one carbohydrate with each meal) and increase you exercise to achieve weight loss and this will help prevent you from progressing to diabetes. Assessment & Plan (02/28/2020 10:13 PM CDT): Pre-diabetes is a precursor to Dm. Stressed importance of working on diet (decrease your simple sugars and one carbohydrate with each meal) and increase you exercise to achieve weight loss and this will help prevent you from progressing to diabetes. Primary insomnia 02/28/2020 Assessment & Plan (06/14/2022 8:30 AM CARDIAC NURSE PRACTITIONER): Continue with the trazodone. She is seen improvement with 50 mg. Having a couple more difficult nights. Advised can increase by half tab to a tab. Will continue to monitor Assessment & Plan (11/01/2021 7:07 PM CDT): Continue trazodone Assessment & Plan (01/28/2021 9:43 AM CDT): Continue Trazodone Assessment & Plan (07/17/2020 8:29 PM CARDIAC NURSE PRACTITIONER): Sleeping well with Trazodone Assessment & Plan (04/14/2020 10:46 AM CARDIAC NURSE PRACTITIONER): Continue Trazodone 50mg 1-2 tabs hs as noting significant improvement Assessment & Plan (02/28/2020 10:16 PM CDT): This is a significant, separately identifiable problem that was evaluated and managed on the same day as the wellness exam Discussed insomnia and that increasing xanax use is not the best choice. Will start Trazodone 1-2 tabs po 1-3 hours before bed. Reassess at next visit. Severe malnutrition 09/30/2019 Assessment & Plan (07/17/2020 8:26 PM CARDIAC NURSE PRACTITIONER): Continue protein supplement as difficulty eating the protein needs due to her tongue cancer. Continue to monitor weight. Assessment & Plan (10/19/2019 5:57 PM CDT): Just had PEG placed. Site without drainage or s/s infection Assessment & Plan (10/05/2019 12:31 PM CDT): - Followed by outpatient Nutrition, noting ongoing poor caloric intake and wt loss meeting severe malnutrition criteria - PEG placed 09/30. Start TF 10/01 and advance to goal. Slow advance given prolonged malnutrition with concern for potential refeeding - Nutrition consulted for tube feed recommendations - Monitor BMP, Mg, Phos, glucoses. Baseline normal lytes. Low phos this AM. Will replete IV today and discharge with 5 days of phos packets and liquid potassium - Now advancing well. Will dc today if hits goal Assessment & Plan (10/04/2019 12:33 PM CDT): - Followed by outpatient Nutrition, noting ongoing poor caloric intake and wt loss meeting severe malnutrition criteria - PEG placed 09/30. Start TF 10/01 and advance to goal. Slow advance given prolonged malnutrition with concern for potential refeeding - Nutrition consulted for tube feed recommendations - Monitor BMP, Mg, Phos, glucoses, no evidence of refeeding a this point - Now advancing well Assessment & Plan (10/03/2019 11:48 AM CDT): - Followed by outpatient Nutrition, noting ongoing poor caloric intake and wt loss meeting severe malnutrition criteria - PEG placed 09/30. Start TF 10/01 and advance to goal. Slow advance given prolonged malnutrition with concern for potential refeeding - Nutrition consulted for tube feed recommendations - Monitor BMP, Mg, Phos, glucoses - Has not advanced quickly due to to N/V. Will continue slow advance into the weekend Assessment & Plan (10/02/2019 12:12 PM CDT): - Followed by outpatient Nutrition, noting ongoing poor caloric intake and wt loss meeting severe malnutrition criteria - PEG placed 09/30. Start TF 10/01 and advance to goal. Slow advance given prolonged malnutrition with concern for potential refeeding - Nutrition consulted for tube feed recommendations - Monitor BMP, Mg, Phos, glucoses Assessment & Plan (10/01/2019 2:36 PM CDT): - Followed by outpatient Nutrition, noting ongoing poor caloric intake and wt loss meeting severe malnutrition criteria - PEG placed 09/30. Start TF 10/01 and advance to goal - Nutrition consulted for tube feed recommendations Assessment & Plan (09/30/2019 4:27 PM CDT): - Followed by outpatient Nutrition, noting ongoing poor caloric intake and wt loss meeting severe malnutrition criteria - VIR consulted for PEG. (pre-procedure COVID neg) - Nutrition consulted for tube feed recommendations - NPO for procedure Odynophagia 09/30/2019 Assessment & Plan (10/19/2019 5:56 PM CDT): Continue per ONC. Has magic Mix. On Fentanyl patch and has oxycodone if needs for break thru pain. Assessment & Plan (10/05/2019 12:31 PM CDT): - 06/08 to cancer treatment. Significant mucositis but no thrush - Pain control noted elsewhere - Cont oral rinses - PHARMACIST'S AIDE eval to determine safety of swallow if patient desires some oral intake Assessment & Plan (10/04/2019 12:33 PM CDT): - 06/08 to cancer treatment. Significant mucositis but no thrush - Pain control noted elsewhere - Cont oral rinses - PHARMACIST'S AIDE eval to determine safety of swallow if patient desires some oral intake Assessment & Plan (10/03/2019 11:47 AM CDT): - 06/08 to cancer treatment. Significant mucositis but no thrush - Pain control noted elsewhere - Cont oral rinses - PHARMACIST'S AIDE eval to determine safety of swallow if patient desires some oral intake Assessment & Plan (10/02/2019 12:13 PM CDT): - 06/08 to cancer treatment. Significant mucositis but no thrush - Pain control noted elsewhere - Cont oral rinses - PHARMACIST'S AIDE eval to determine safety of swallow if patient desires some oral intake Assessment & Plan (10/01/2019 2:36 PM CDT): - 2/2 to cancer treatment. Significant mucositis but no thrush - Pain control noted elsewhere - Cont oral rinses - PHARMACIST'S AIDE eval to determine safety of swallow if patient desires some oral intake Assessment & Plan (09/30/2019 4:25 PM CDT): - 2/2 to cancer treatment. Significant mucositis but no thrush - Pain control noted elsewhere - Cont oral rinses - PHARMACIST'S AIDE eval to determine safety of swallow if patient desires some oral intake Cancer related pain 09/30/2019 Assessment & Plan (10/19/2019 5:56 PM CDT): See odynophagia Assessment & Plan (10/05/2019 12:31 PM CDT): - Cont fentanyl patch, change to liquid oxycodone until PEG available. IV dilaudid breakthrough Assessment & Plan (10/04/2019 12:33 PM CDT): - Cont fentanyl patch, change to liquid oxycodone until PEG available. IV dilaudid breakthrough Assessment & Plan (10/03/2019 11:47 AM CDT): - Cont fentanyl patch, change to liquid oxycodone until PEG available. IV dilaudid breakthrough Assessment & Plan (10/02/2019 12:13 PM CDT): - Cont fentanyl patch, change to liquid oxycodone until PEG available. IV dilaudid breakthrough Assessment & Plan (10/01/2019 2:36 PM CDT): - Cont fentanyl patch, change to liquid oxycodone until PEG available. IV dilaudid breakthrough Assessment & Plan (09/30/2019 4:24 PM CDT): - Cont fentanyl patch, change to liquid oxycodone until PEG available. IV dilaudid breakthrough Bicytopenia 09/30/2019 Cancer Staging:Clinical: Unsigned Assessment & Plan (10/05/2019 12:31 PM CDT): - Mild leukopenia/neutropenia and anemia, likely chemo related. Last cisplatin 5/6 - CTM Assessment & Plan (10/04/2019 12:33 PM CDT): - Mild leukopenia/neutropenia and anemia, likely chemo related. Last cisplatin 5/6 - CTM Assessment & Plan (10/03/2019 11:47 AM CDT): - Mild leukopenia/neutropenia and anemia, likely chemo related. Last cisplatin 5/6 - CTM Assessment & Plan (10/02/2019 12:13 PM CDT): - Mild leukopenia/neutropenia and anemia, likely chemo related. Last cisplatin 5/6 - CTM Assessment & Plan (10/01/2019 2:36 PM CDT): - Mild leukopenia/neutropenia and anemia, likely chemo related. Last cisplatin 5/6 - CTM Assessment & Plan (09/30/2019 4:23 PM CDT): - Mild leukopenia/neutropenia and anemia, likely chemo related. Last cisplatin 5/6 - CTM Secondary malignant neoplasm of cervical lymph n ode 08/01/2019 Assessment & Plan (02/28/2020 10:09 PM CDT): Continue per ONC Squamous cell carcinoma of ventral tongue ([facility]) 06/26/2019 Cancer Staging:Clinical:Stage III(cT1, cN1, cM0) - Signed by Silvano Groves MD on 07/29/2019 Pathologic:Stage MERCEDES(pT2, pN2a, cM0) - Signed by Silvano Groves MD on 07/29/2019 Overview (01/13/2020): DIAGNOSIS: T1N0 left oral tongue carcinoma PROCEDURE PERFORMED: (Manuel 07/08/2019) Left partial glossectomy Left neck dissection Full thickness skin graft from left neck to left tongue 4 x 6 cm 1. 10/07/19, completion of POACRT.(Bijan/Axel) Assessment & Plan (2023 10:30 AM CARDIAC NURSE PRACTITIONER): Continue with ENT and her rad Onc. Continuing very close monitoring and follow-up. She was supposed to have CT of the chest done in August of 2022 but patient canceled. Stressed the importance of her following up with to get this reordered to continue close follow-up. She verbalizes understanding will reach out for assistance with his office Assessment & Plan (06/14/2022 8:30 AM CARDIAC NURSE PRACTITIONER): Continue close surveillance with . It appears she is due for imaging. She has an appointment with him in the spring Assessment & Plan (11/01/2021 7:11 PM CDT): Continue per ONC and . Patient states she is cancer free but still under very close monitoring. Assessment & Plan (02/28/2020 10:10 PM CDT): Continue per oNC> Still in active treatment/close monitoring Assessment & Plan (10/05/2019 12:31 PM CDT): -s/p surgery, chemo with ongoing radiation. Follows with Dr. Reyna, Dr. Manuel Villegas - Monitor counts - Pain control - Anti-emetics PRN Assessment & Plan (10/04/2019 12:33 PM CDT): -s/p surgery, chemo with ongoing radiation. Follows with Dr. Reyna, Dr. Manuel Villegas - Monitor counts - Pain control - Anti-emetics PRN Assessment & Plan (10/03/2019 11:47 AM CDT): -s/p surgery, chemo with ongoing radiation. Follows with Dr. Reyna, Dr. Manuel Villegas - Monitor counts - Pain control - Anti-emetics PRN Assessment & Plan (10/02/2019 12:13 PM CDT): -s/p surgery, chemo with ongoing radiation. Follows with Dr. Reyna, Dr Thakkar, - Monitor counts - Pain control - Anti-emetics PRN Assessment & Plan (10/01/2019 2:36 PM CDT): -s/p surgery, chemo with ongoing radiation. Follows with Dr. Reyna, Dr. Manuel Villegas - Monitor counts - Pain control - Anti-emetics PRN Assessment & Plan (09/30/2019 4:26 PM CDT): -s/p surgery, chemo with ongoing radiation. Follows with Dr. Reyna, Dr. Manuel Villegas - Monitor counts - Pain control - Anti-emetics PRN Assessment & Plan (08/11/2019 2:19 PM CDT): Continue per ONC. Starting chemo and radiation per pt. Using Xanax currently in addition to the Wellbutrin/Lexapro. Discussed changing the Xanax to Ativan for longer duration if needed to get thru radiation. Lung nodule < 6cm on CT 05/23/2019 Overview (11/01/2021): 05/2019 LDCT -- 2.5mm left lower lobe nodule. Probably benign. Repeat 05/2020 -- CT Chest for tongue cancer. Nodules were stable. 07/2021 - CT chest f.u tongue cancer. Stable subpleural 4 mm nodule in the left lower lobe since 12/01/2019. Assessment & Plan (11/01/2021 7:07 PM CDT): 07/2021 - CT chest f.u tongue cancer. Stable subpleural 4 mm nodule in the left lower lobe since 12/01/2019. Assessment & Plan (04/14/2020 10:43 AM CARDIAC NURSE PRACTITIONER): 11/2019 CT chest was stable. Dr. Thakkar, ONC has july 2020 CT scheduled for followup so will not order LDCT. Assessment & Plan (02/28/2020 10:17 PM CDT): Due to repeat imaging in 05/2020 or further out pending more screening unless has chest imaging with her tongue cancer followup Assessment & Plan (08/11/2019 2:16 PM CDT): Needs to repeat 05/2020 Colon cancer screening 12/21/2018 Assessment & Plan (03/28/2024 11:29 AM CARDIAC NURSE PRACTITIONER): Patient is due for colon cancer screening. Prefers Cologuard. Order placed Assessment & Plan (07/17/2020 8:28 PM CARDIAC NURSE PRACTITIONER): Order placed for cologuard Assessment & Plan (04/14/2020 10:44 AM CARDIAC NURSE PRACTITIONER): Encouraged to get the colonoscopy scheduled Assessment & Plan (02/28/2020 10:12 PM CDT): Refer to Dr. Brown for screening colonoscopy Assessment & Plan (12/21/2018 11:02 PM CDT): Patient prefers cologuard. Order sent. Gastroesophageal reflux disease with esophagitis 12/21/2018 Assessment & Plan (2023 10:31 AM CARDIAC NURSE PRACTITIONER): Continue with esomeprazole daily. Assessment & Plan (06/14/2022 8:30 AM CARDIAC NURSE PRACTITIONER): Continue PPI Assessment & Plan (11/01/2021 7:04 PM CDT): Continue use omeprazole Assessment & Plan (01/28/2021 9:43 AM CDT): Continue PPI as stable Assessment & Plan (07/17/2020 8:26 PM CARDIAC NURSE PRACTITIONER): Continue PPI Assessment & Plan (12/21/2018 11:01 PM CDT): Stable with Nexium. Refills available in pharmacy History of cigarette smoking 12/17/2018 Overview (08/11/2019): Quit 06/2019 Assessment & Plan (08/11/2019 2:21 PM CDT): Quit smoking prior to her surgery with the help of the Wellbutrin. Will continue as helping with depression/anxiety also. Assessment & Plan (05/30/2019 12:10 PM CARDIAC NURSE PRACTITIONER): Encouraged smoking cessation. Discussed 3 minutes. Reviewed options for assistance with cessation. Reviewed care home sequela associated with smoking. Pt declines assistance at this time but may contact the office at anytime for further help as they desire. Increased the lexapro to 20mg to see if helps with stress smoking but discussed at length considering adding Wellbutrin. She will consider. Assessment & Plan (05/19/2019 12:48 AM CARDIAC NURSE PRACTITIONER): Encouraged smoking cessation. Discussed 3 minutes. Reviewed options for assistance with cessation. Reviewed care home sequela associated with smoking. Pt declines assistance at this time but may contact the office at anytime for further help as they desire. Assessment & Plan (12/21/2018 11:00 PM CDT): Offered low-dose CT. Will order. Mixed hyperlipidemia 09/27/2018 Assessment & Plan (03/28/2024 11:29 AM CARDIAC NURSE PRACTITIONER): Encouraged patient to follow low fat/low chol diet like the Mediterranean diet. Increase good fats in the diet. Increase exercise. Monitor labs as needed. Continue atorvastatin 10 Assessment & Plan (08/19/2023 10:26 AM CDT): Encouraged patient to follow low fat/low chol diet like the Mediterranean diet. Increase good fats in the diet. Increase exercise. Monitor labs as needed. Continue atorvastatin 10 Assessment & Plan (2023 10:30 AM CARDIAC NURSE PRACTITIONER): Encouraged patient to follow low fat/low chol diet like the Mediterranean diet. Increase good fats in the diet. Increase exercise. Monitor labs as needed. Continue atorvastatin Assessment & Plan (06/14/2022 8:29 AM CARDIAC NURSE PRACTITIONER): Encouraged patient to follow low fat/low chol diet like the Mediterranean diet. Increase good fats in the diet. Increase exercise. Monitor labs as needed. Continue atorvastatin Assessment & Plan (11/01/2021 7:03 PM CDT): Encouraged patient to follow low fat/low chol diet like the Mediterranean diet. Increase good fats in the diet. Increase exercise. Monitor labs as needed. Continue atorvastatin Assessment & Plan (07/10/2021 2:04 PM CARDIAC NURSE PRACTITIONER): Continue with medication and plan of treatment for hyperlipidemia. Talked about diet, exercise, and will get last lab work. Assessment & Plan (01/28/2021 9:41 AM CDT): Encouraged patient to follow fat/low chol diet like the Mediterranean diet. Increase good fats in the diet. Increase exercise. Monitor labs as needed. Continue statin Assessment & Plan (07/17/2020 8:27 PM CARDIAC NURSE PRACTITIONER): Encouraged patient to follow fat/low chol diet like the Mediterranean diet. Increase good fats in the diet. Increase exercise. Monitor labs as needed. Continue statin Assessment & Plan (02/28/2020 10:09 PM CDT): Encouraged patient to follow fat/low chol diet like the Mediterranean diet. Increase good fats in the diet. Increase exercise. Monitor labs as needed. Continue statin Assessment & Plan (10/19/2019 5:58 PM CDT): Encouraged patient to continue low fat/low chol diet. Continue exercise. Increase good fats in the diet. Monitor labs as needed. Holding statin due to PEG. Will restart when returns to oral meds Assessment & Plan (05/30/2019 12:06 PM CARDIAC NURSE PRACTITIONER): Encouraged patient to continue low fat/low chol diet. Continue exercise. Increase good fats in the diet. Monitor labs as needed. Assessment & Plan (12/21/2018 11:09 PM CDT): This is a significant, separately identifiable problem that was evaluated and managed on the same day as the wellness exam Restart Statin. Encouraged patient to continue low fat/low chol diet. Continue exercise. Increase good fats in the diet. Monitor labs as needed. Will hold off rechecking labs at this point until back on the statin. Situational anxiety 09/27/2018 Assessment & Plan (03/28/2024 11:28 AM CARDIAC NURSE PRACTITIONER): Managed by psychiatrist. Currently on p.r.n. Xanax, Trintellix and Wellbutrin Assessment & Plan (01/28/2021 9:46 AM CDT): Doing well with wellbutrin XL300 and lexapro 20mg. Having increased break thru anxiety as has a return to work date. Xanax makes her sleepy. Start Busapr 5mg bid with third in the middle of the day if needed. F.u 6 weeks to reassess. Assessment & Plan (07/17/2020 8:28 PM CARDIAC NURSE PRACTITIONER): Continue Welbutrin and lexapro with prn xanax Assessment & Plan (02/28/2020 10:15 PM CDT): Continue wellbutrin and lexapro Assessment & Plan (10/05/2019 12:31 PM CDT): - Cont home xanax Assessment & Plan (10/04/2019 12:33 PM CDT): - Cont home xanax Assessment & Plan (10/03/2019 11:46 AM CDT): - Cont home xanax Assessment & Plan (10/02/2019 12:12 PM CDT): - Cont home xanax Assessment & Plan (10/01/2019 2:36 PM CDT): - Cont home xanax Assessment & Plan (09/30/2019 4:26 PM CDT): - Cont home xanax Assessment & Plan (08/11/2019 2:24 PM CDT): Continue Wellbutrin and lexapro and Xanax prn Assessment & Plan (05/30/2019 12:06 PM CARDIAC NURSE PRACTITIONER): Increase the Lexapro to 20mg Assessment & Plan (12/21/2018 11:00 PM CDT): See depression Moderate episode of recurrent major depressive d isorder 09/27/2018 Assessment & Plan (2023 10:31 AM CARDIAC NURSE PRACTITIONER): Continue per Dr. Terry. She still on Trintellix and Wellbutrin Assessment & Plan (06/14/2022 8:30 AM CARDIAC NURSE PRACTITIONER): Continue per Dr. Terry Assessment & Plan (11/01/2021 7:04 PM CDT): He continue per Dr. coley. She still awaiting ADD evaluation results. She is on BuSpar Lexapro Wellbutrin and p.r.n. Xanax Assessment & Plan (06/26/2021 5:39 PM CARDIAC NURSE PRACTITIONER): Continue Lexapro all [place] BuSpar and Xanax Assessment & Plan (07/17/2020 8:28 PM CARDIAC NURSE PRACTITIONER): Continue wellbutrin, lexapro and xanax prn Assessment & Plan (04/14/2020 10:44 AM CARDIAC NURSE PRACTITIONER): Continue Wellbutrin and Lexapro and prn Xanax Assessment & Plan (02/28/2020 10:11 PM CDT): Stable with lexapro and wellbutrin Assessment & Plan (10/05/2019 12:31 PM CDT): - Cont home escitalopram, bupropion, xanax Assessment & Plan (10/04/2019 12:33 PM CDT): - Cont home escitalopram, bupropion, xanax Assessment & Plan (10/03/2019 11:47 AM CDT): - Cont home escitalopram, bupropion, xanax Assessment & Plan (10/02/2019 12:12 PM CDT): - Cont home escitalopram, bupropion, xanax Assessment & Plan (10/01/2019 2:36 PM CDT): - Cont home escitalopram, bupropion, xanax Assessment & Plan (09/30/2019 4:26 PM CDT): - Cont home escitalopram, bupropion, xanax Assessment & Plan (08/11/2019 2:20 PM CDT): Continue Wellbutrin and LExapro. Improved but still stressors with her cancer and COVID. Assessment & Plan (05/30/2019 12:10 PM CARDIAC NURSE PRACTITIONER): Increase the Lexapro to 20mg. Reassess in 4-6 weeks. Assessment & Plan (12/21/2018 11:00 PM CDT): This is a significant, separately identifiable problem that was evaluated and managed on the same day as the wellness exam Tolerating the Lexapro 5 mg well but still having breakthrough symptoms. Recommend increasing it to 10 mg. Will refill her Xanax 10. To use over the entire year. Reviewed the dependency and addiction potential with benzodiazepines and encouraged to use sparingly as needed Resolved Problems Problem Noted Date Diagnosed Date Resolved Date Right flank pain 09/10/2023 03/28/2024 Assessment & Plan (09/10/2023 8:02 AM CDT): Patient has noted right flank pain after falling into a table on the pool deck. No hematuria but will still check urine today for any blood. If present will need a ultrasound of the right kidney. Continue with rest and avoiding twisting activities. Will send out Mobic and Flexeril to use p.r.n.. Reviewed risks benefits alternatives side effects and proper use. If symptoms persist will need to follow-up but advised it could take weeks for this to fully resolve Fall against object 09/10/2023 03/28/20 24 Assessment & Plan (09/10/2023 8:02 AM CDT): Patient has noted right flank pain after falling into a table on the pool deck. No hematuria but will still check urine today for any blood. If present will need a ultrasound of the right kidney. Continue with rest and avoiding twisting activities. Will send out Mobic and Flexeril to use p.r.n.. Reviewed risks benefits alternatives side effects and proper use. If symptoms persist will need to follow-up but advised it could take weeks for this to fully resolve Thumb pain, right 08/19/2023 03/28/2024 Assessment & Plan (08/19/2023 10:25 AM CDT): Thumb pain, probable de Quervain on the right has resolved with splinting. Continue with splinting as needed and follow-up if symptoms return. If that occurs will refer to hand for further evaluation BMI 26.0-26.9,adult 09/11/2022 03/26/20 23 Assessment & Plan (09/11/2022 8:50 AM CDT): Weight/BMI is in healthy range. Continue healthy lifestyle to maintain. Discharge from the vagina 09/11/2022 Assessment & Plan (09/11/2022 9:54 PM CDT): Vaginal discharge present. Will check for yeast and bacteria. Trichomoniasis is also included. Reviewed good perineal care Pap smear for cervical cancer screening 09/11/2022 2023 Assessment & Plan (09/11/2022 9:54 PM CDT): Pap smear obtained. Reviewed screening recommendations. If negative for Pap cells and HPV will repeat Pap in 5 years Encounter for routine gyneco logical examination with Papanicolaou smear of cervix 09/11/2022 2023 Assessment & Plan (09/11/2022 9:55 PM CDT): Encouraged healthy lifestyle, good nutrition and exercise. Encouraged Calcium and Vitamin D and weight bearing exercise for bone health. Reviewed immunizations Reviewed age appropirate screenings. Tinea 09/11/2022 03/28/2024 Assessment & Plan (09/11/2022 9:57 PM CDT): This is a significant, separately identifiable problem that was evaluated and managed on the same day as the wellness exam Tinea rash under the breasts. Encouraged to keep the area clean and dry. Will send antifungal along with nystatin powder to use as prevention BMI 26.0-26.9,adult 06/14/2022 09/12/19 23 Assessment & Plan (06/14/2022 8:04 AM CARDIAC NURSE PRACTITIONER): Weight/BMI is in healthy range. Continue healthy lifestyle. Diabetes mellitus screening 06/14/2022 2023 BMI 24.0-24.9, adult 11/01/2021 023 Assessment & Plan (11/01/2021 9:19 AM CDT): Obesity is unchanged. Discussed the patient's BMI. The BMI is above average. BMI management plan is completed. BMI Follow-up includes: nutrition counseling, exercise counseling and education provided. Stress 08/21/2021 08/21/2021 Neck pain 08/18/2021 03/28/2024 Assessment & Plan (06/14/2022 8:31 AM CARDIAC NURSE PRACTITIONER): Continues to use the gabapentin for persistent neck pain after her surgery. States it really does help and wants to continue. Assessment & Plan (11/01/2021 7:08 PM CDT): Patient continues with the gabapentin with management of her discomfort. Assessment & Plan (08/21/2021 10:48 AM CDT): Patient complains of chronic pain but has not had any of this worked up. Recommend getting x-rays of her neck and thoracic back as well as the knee so that we can begin trying to work this up in get her improvement. She may use anti-inflammatory as needed. She may use topical Voltaren gel to the area as needed. Advised she probably would benefit greatly from physical therapy but she is not interested in trying this advised I will go ahead and send an order to her home address so if she decides she wants to she has available. Lumbar back pain 08/18/2021 08/21/2021 Chronic pain of right knee 08/18/2021 1 05/28/2023 Assessment & Plan (08/21/2021 10:48 AM CDT): Check x-rays. Advised may benefit from physical therapy and orthopedic referral I went ahead and placed an order for physical therapy so she decided she wants to do it she can Breast cancer screening by mammogram 08/18/2021 2023 Assessment & Plan (09/11/2022 9:53 PM CDT): Mammogram order provided Assessment & Plan (06/14/2022 8:31 AM CARDIAC NURSE PRACTITIONER): Mammogram order provided Assessment & Plan (08/21/2021 10:48 AM CDT): Mammogram order provided. Will mail to her home address Immunization due 07/10/2021 11/01/2021 Assessment & Plan (07/10/2021 2:27 PM CARDIAC NURSE PRACTITIONER): Talked about her immunization status and importance of keeping these up to date. Immunization due: TDAP,Zoster vac, pneumonia vac. 3rd Covid shot., Suggested with check insurance and see where we need to get these caught up on. Agrees with this concern. BMI 22.0-22.9, adult 01/28/2021 022 Assessment & Plan (01/28/2021 9:08 AM CDT): Weight/BMI is in healthy range. Continue healthy lifestyle to maintain. Body mass index (BMI) of 19.0-19.9 in adult 07/16/2020 01/28/2021 Assessment & Plan (07/17/2020 8:30 PM CARDIAC NURSE PRACTITIONER): Continue to push high protein in supplement to maintain/increase weight. Need for immunization against influenza 02/28/2020 07/16/2020 Assessment & Plan (02/28/2020 10:13 PM CDT): Updated in office today Abnormal mammogram of right breast 02/28/2020 11/01/2021 Assessment & Plan (04/14/2020 10:43 AM CARDIAC NURSE PRACTITIONER): Stressed importance of f.u mammogram/US to avoid delay in diagnosis/change in outcome. Assessment & Plan (02/28/2020 10:15 PM CDT): This is a significant, separately identifiable problem that was evaluated and managed on the same day as the wellness exam Reviewed importance of following up with additional imaging. Right diag mamm and US to followup 06/2019. Annual physical exam 02/26/2020 022 Assessment & Plan (07/17/2020 8:27 PM CARDIAC NURSE PRACTITIONER): Encouraged healthy lifestyle, good nutrition and exercise. Encouraged Calcium and Vitamin D and weight bearing exercise for bone health. Reviewed immunizations Reviewed age appropirate screenings. Assessment & Plan (02/28/2020 10:13 PM CDT): Encouraged healthy lifestyle, good nutrition and exercise. Encouraged Calcium and Vitamin D and weight bearing exercise for bone health. Reviewed immunizations Reviewed age appropirate screenings. BMI 23.0-23.9, adult 10/14/2019 021 Assessment & Plan (10/19/2019 5:58 PM CDT): Weight/BMI is in healthy range. Continue healthy lifestyle to maintain. Monitor closely as had significant loss since cancer dx. GERD (gastroesophageal reflux disease) 10/03/2019 10/14/2019 Assessment & Plan (10/05/2019 12:31 PM CDT): - Start per tube liquid esomeprazole Assessment & Plan (10/04/2019 12:33 PM CDT): - Start per tube liquid esomeprazole Assessment & Plan (10/03/2019 11:47 AM CDT): - Start per tube liquid esomeprazole BMI 25.0-25.9,adult 08/11/2019 11/02/19 22 Assessment & Plan (05/25/2021 7:40 AM CARDIAC NURSE PRACTITIONER): Weight/BMI is in healthy range. Continue healthy lifestyle to maintain. Assessment & Plan (08/11/2019 1:48 PM CDT): Weight/BMI is in healthy range. Continue healthy lifestyle to maintain. Other fatigue 05/30/2019 07/16/2020 Assessment & Plan (02/28/2020 10:11 PM CDT): Probably multifactorial. Check labs and followup to re-evaluate Assessment & Plan (05/30/2019 12:11 PM CARDIAC NURSE PRACTITIONER): Probably multifactorial. Check labs and followup to re-evaluate Diabetes mellitus screening 05/30/2019 08/11/2019 Assessment & Plan (05/30/2019 12:09 PM CARDIAC NURSE PRACTITIONER): Check labs Acute non-recurrent maxillary sinusitis 05/19/2019 08/11/2019 Assessment & Plan (05/30/2019 12:05 PM CARDIAC NURSE PRACTITIONER): Improved on the left side but still having facial pressure and tongue lesion on the left. Will await bx results on the lesion to determine further followup. Assessment & Plan (05/19/2019 12:47 AM CARDIAC NURSE PRACTITIONER): Start antibiotic, antihistamine, Mucinex and Steroid nasal spray. Push fluids. Rest. Supportive care. If sxs worsen or don\'t improve, pt is to followup in the office. Tongue lesion 05/19/2019 08/11/2019 Assessment & Plan (05/30/2019 12:15 PM CARDIAC NURSE PRACTITIONER): Pt already has appointment with oral surgeon for biopsy of tongue lesion. This was set up by her dentist. Will await pathology report. If positive, discussed may need referral to ENT and will be glad to assist. Discussed options including ENT/[facility] physicians. She will consider. Assessment & Plan (05/19/2019 12:48 AM CARDIAC NURSE PRACTITIONER): Monitor very closely as pt is a care home smoker Reviewed increased risk of oral cancer. Recheck in 2 weeks after completeing the antibiotic. If still present, will refer to ENT. BMI 28.0-28.9,adult 05/14/2019 08/11/19 20 Assessment & Plan (05/30/2019 12:07 PM CARDIAC NURSE PRACTITIONER): Weight/BMI is in healthy range. Continue healthy lifestyle to maintain. Assessment & Plan (05/14/2019 1:50 PM CARDIAC NURSE PRACTITIONER): Weight/BMI is in healthy range. Continue healthy lifestyle to maintain. Breast cancer screening 12/21/201803/08 Assessment & Plan (12/21/2018 11:01 PM CDT): Mammogram order provided Neck pain 12/21/2018 08/11/2019 Assessment & Plan (12/21/2018 11:09 PM CDT): This is a significant, separately identifiable problem that was evaluated and managed on the same day as the wellness exam Ran out of the Gabapentin. Needs refills. Patient has done well to gabapentin. Refills sent to pharmacy. Annual physical exam 12/21/2018 020 Assessment & Plan (12/21/2018 11:01 PM CDT): Encouraged healthy lifestyle, good nutrition and exercise. Encouraged Calcium and Vitamin D and weight bearing exercise for bone health. Reviewed immunizations Reviewed age appropirate screenings. BMI 27.0-27.9,adult 12/17/2018 05/14/19 20 Assessment & Plan (12/17/2018 3:59 PM CDT): Weight/BMI is in healthy range. Continue healthy lifestyle to maintain. Current moderate episode of major depressive disorder without prior episode 03/07/2018 2 Assessment & Plan (08/21/2021 10:46 AM CDT): Patient has obvious sensation of being overwhelmed currently. This can be due to her cancer diagnosis but also it sounds like she has stressors at work social stressors with finances and transportation as well as her being ill. At this point will continue with her Wellbutrin and Lexapro. She refuses to consider restarting BuSpar although this may help with some of her anxiety. She states that being she Effexor driving but advised that really should. She continues to use Xanax a few times a week. Advised this is probably more likely to Effexor driving. Strongly encouraged continuing with a counselor as I think this will help her work through some of her stressors. Also encouraged her to consider psychiatrist to re-evaluate effectiveness of her medication as well as discuss the possibility of time off due to the stressors. Advised that many times of mental health concerns the psychiatrist is the 1 who is but stable to determine the need for time off and to complete the paperwork in a way that all allow the documentation to support. Advised I would be glad to provide FMLA paperwork for her to keep her appointments as she will need to continue doing that. If she needs to help with care for her in his provider would be able to complete FMLA paperwork for her to support this. She again states she just wants somebody to give her the ability to work at home for ever and I advised I at this point and not able to support that. Immunizations Immunization Administration Dates Next Due Influenza, Quadrivalent, Spl it, Preservative Free, Intramuscular 2023,03/03/2021,02/27/2020 Influenza, Trivalent, Preser vative Free, Intramuscular 03/28/2024 Influenza, Unspecified 06/07/2022(Deferr ed: Patient Refused),03/28/2022 PrePayMe ([employer]) SARS-CoV-2 Vaccination 09/03/2020 Moderna Sars-cov-2 Monovalen t Vaccination (6-11 YRS) 03/28/2022 Pneumococcal Conjugate Pcv20 2023( Deferred: Patient Refused),05/07/2022(Deferred: Patient Refused) Social History Tobacco Use Types Packs/Day Years Used Date Smoking Tobacco: Former Cigarettes 0.5 5.3 S tarted: 2019 Smokeless Tobacco: Never Tobacco Cessation:Counseling Given: Not Answered Comments:nicotine vape 5mg Alcohol Use Standard Drinks/Week Comments Not Currently 0 (1 standard drink = 0.6 oz pur e alcohol) holidays AUDIT-C Answer Date Recorded Q1: How often do you have a drink containing alc ohol? Monthly or less 09/11/2022 Q2: How many drinks containi ng alcohol do you have on a typical day when you are drinking? 1 or 2 09/11/2022 Q3: How often do you have si x or more drinks on one occasion? 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 on file Not on [employer] Not on file Last Filed Vital Signs Vital Sign Reading Time Taken Comments Blood Pressure 128/88 03/28/2024 7:09 AM CARDIAC NURSE PRACTITIONER Pulse 75 03/28/2024 7:09 AM CARDIAC NURSE PRACTITIONER Temperature 37.1 C (98.7 F) 03/28/2024 7:09 AM CARDIAC NURSE PRACTITIONER Respiratory Rate 16 08/09/2021 10:53 AM CDT Oxygen Saturation 98% 03/28/2024 7:09 AM CARDIAC NURSE PRACTITIONER Inhaled Oxygen Concentration - - Weight 75.8 kg (167 lb) 08/20/2024 1:42 PM CDT Height 163.2 cm (5' 4.25 ) 08/20/2024 11:41 AM C DT Body Mass Index 28.44 08/20/2024 11:41 AM CDT Plan of Treatment Not on file Procedures Procedure Name Priority Date/Time Associated Diagnosis Comments HM MAMMOGRAPHY Routine 08/05/2024 11:48 AM CDT LIPID PANEL Routine 06/06/2024 6:25 AM CARDIAC NURSE PRACTITIONER Mixed hyperlipidemia VITAMIN B12 Routine 06/06/2024 6:25 AM CARDIAC NURSE PRACTITIONER Fatigue, unspecified type TSH Routine 06/06/2024 6:25 AM CARDIAC NURSE PRACTITIONER Acquired hypothyroidism HEMOGLOBIN A1C Routine 06/06/2024 6:25 AM CARDIAC NURSE PRACTITIONER Pre-diabetes COMPREHENSIVE METABOLIC PANEL Routine 06/06/2024 6:25 AM CARDIAC NURSE PRACTITIONER Fatigue, unspecified type CBC WITH AUTO DIFFERENTIAL Routine 06/06/2024 6:25 AM CARDIAC NURSE PRACTITIONER Fatigue, unspecified type PAP AND HIGH RISK HPV, REFLEX TO GENOTYPING Routine 09/11/2022 9:33 AM CDT Pap smear for cervical cancer screening STOOL DNA COLOGUARD Routine 01/05/2021 6:15 AM CDT Colon cancer screening from Last 3 Months or Most Recently Relevant to Health Maintenance Results * HM MAMMOGRAPHY (08/05/2024 11:48 AM CDT) Pathologist [facility] Mammography Normal Impressions Latoya Lindsay, KRISTI - 08/05/2024 11:48 AM CDT 1 No mammographic evidence of malignancy 2 Recommend routine screening mammography in one year BI-RADS Category 1:Negative Historical Provider HEALTH MAINTENANCE Edited Result - Final * (ABNORMAL) CBC with auto differential (06/06/2024 6:25 AM CARDIAC NURSE PRACTITIONER) Pathologist [facility] WBC 5.6 3.8 - 10.8 Thousand/u L [facility] RBC, POC 4.36 3.80 - 5.10 Million/uL [facility] Hgb 13.3 11.7 - 15.5 g/dL [facility] Hct 41.7 35.0 - 45.0 % [facility] MCV 95.6 80.0 - 100.0 fL [facility] MCH 30.5 27.0 - 33.0 pg [facility] MCHC 31.9(L) 32.0 - 36.0 g/dL [facility] Comment: For adults, a slight decrease in the calculated MCHC value (in the range of 30 to 32 g/dL) is most likely not clinically significant; however, it should be interpreted with caution in correlation with other red cell parameters and the patient's clinical condition. Rdw 12.1 11.0 - 15.0 % [facility] Platelets 230 140 - 400 Thousand/u L [facility] MPV 10.7 7.5 - 12.5 fL [facility] Neutrophils, abs 3,998 1,500 - 7,800 cells/uL [facility] Lymphocytes, abs 812(L) 850 - 3,900 cells/uL [facility] Monocyte abs 549 200 - 950 cells/uL [facility] Eosinophils, abs 202 15 - 500 cells/uL [facility] Basophils, abs 39 0 - 200 cells/uL [facility] Neutrophils 71.4 % [facility] Lymphocyte pct 14.5 % [facility] Monocytes 9.8 % [facility] Eosinophils 3.6 % [facility] Basophils 0.7 % [facility] Blood 06/06/2024 6:25 AM CARDIAC NURSE PRACTITIONER 06/06/2024 6:26 AM CARDIAC NURSE PRACTITIONER Narrative [facility] - 06/07/2024 3:32 AM CARDIAC NURSE PRACTITIONER FASTING:YES FASTING: YES Kristen COOPER LAB BLOOD ORDERABLES Final Result [facility] [address] [facility] [place] [address] * TSH (06/06/2024 6:25 AM CARDIAC NURSE PRACTITIONER) Pathologist [facility] TSH 3.63 0.40 - 4.50 mIU/L [facility] Blood 06/06/2024 6:25 AM CARDIAC NURSE PRACTITIONER 06/06/2024 6:26 AM CARDIAC NURSE PRACTITIONER Narrative [facility] - 06/07/2024 3:32 AM CARDIAC NURSE PRACTITIONER FASTING:YES FASTING: YES Kristen COOPER LAB BLOOD ORDERABLES Final Result [facility] [address] [address] [address] * Hemoglobin A1c (06/06/2024 6:25 AM CARDIAC NURSE PRACTITIONER) Hgb A1C 5.4 <5.7 % of total Hgb [facility] Comment: For the purpose of screening for the presence of diabetes: <5.7% Consistent with the absence of diabetes 5.7-6.4% Consistent with increased risk for diabetes (prediabetes) > or =6.5% Consistent with diabetes This assay result is consistent with a decreased risk of diabetes. Currently, no consensus exists regarding use of hemoglobin A1c for diagnosis of diabetes in children. According to [place] Diabetes Association (ADA) guidelines, hemoglobin A1c <7.0% represents optimal control in non- diabetic patients. Different metrics may apply to specific patient populations. Standards of Medical Care in Diabetes(ADA). Blood 06/06/2024 6:25 AM CARDIAC NURSE PRACTITIONER 06/06/2024 6:26 AM CARDIAC NURSE PRACTITIONER Narrative [facility] - 06/07/2024 3:32 AM CARDIAC NURSE PRACTITIONER FASTING:YES FASTING: YES Kristen COOPER LAB BLOOD ORDERABLES Final Result Performing Organization Address [facility]/ZIP Co de Phone Number [facility] [address] [place] [address] * Vitamin B12 (06/06/2024 6:25 AM CARDIAC NURSE PRACTITIONER) Vitamin B12 645 200 - 1,100 pg/mL [facility] Blood 06/06/2024 6:25 AM CARDIAC NURSE PRACTITIONER 06/06/2024 6:26 AM CARDIAC NURSE PRACTITIONER Narrative [facility] - 06/07/2024 3:32 AM CARDIAC NURSE PRACTITIONER FASTING:YES FASTING: YES Kristen COOPER LAB BLOOD ORDERABLES Final Result [facility] [address] [address] [address] * (ABNORMAL) Lipid panel (06/06/2024 6:25 AM CARDIAC NURSE PRACTITIONER) Cholesterol 216(H) <200 mg/dL [facility] HDL 100 > OR = 50 mg/dL [facility] Triglycerides 82 <150 mg/dL [facility] LDL 99 mg/dL (calc) [facility] Comment: Reference range: <100 Desirable range <100 mg/dL for primary prevention; <70 mg/dL for patients with CHD or diabetic patients with > or = 2 CHD risk factors. LDL-C is now calculated using the [place] calculation, which is a validated novel method providing better accuracy than the Friedewald equation in the estimation of LDL-C. Arthur ARREOLA et al. AMILCAR. 2013;310(19): 0321-1927 (http://education.Fisoc.Quotte/faq/UBZ081) Chol/HDL ratio 2.2 <5.0 (calc) [facility] Non-HDL, (LDL+VLDL) 116 <130 mg/dL (calc) [facility] Comment: For patients with diabetes plus 1 major ASCVD risk factor, treating to a non-HDL-C goal of <100 mg/dL (LDL-C of <70 mg/dL) is considered a therapeutic option. Blood 06/06/2024 6:25 AM CARDIAC NURSE PRACTITIONER 06/06/2024 6:26 AM CARDIAC NURSE PRACTITIONER Narrative [facility] - 06/07/2024 3:32 AM CARDIAC NURSE PRACTITIONER FASTING:YES FASTING: YES us Kristen COOPER LAB BLOOD ORDERABLES Final Result [facility] [address] [address] [address] * (ABNORMAL) Comprehensive metabolic panel (06/06/2024 6:25 AM CARDIAC NURSE PRACTITIONER) Glucose 102(H) 65 - 99 mg/dL [facility] Comment: Fasting reference interval For someone without known diabetes, a glucose value between 100 and 125 mg/dL is consistent with prediabetes and should be confirmed with a follow-up test. BUN 18 7 - 25 mg/dL [facility] Creatinine 0.84 0.50 - 1.05 mg/dL [facility] eGFR 79 > OR = 60 mL/min/1.7 3m2 [facility] BUN/creat ratio SEE NOTE: 6 - 22 (calc) [facility] Comment: Not Reported: BUN and Creatinine are within reference range. Sodium 143 135 - 146 mmol/L [facility] Potassium, pl 4.4 3.5 - 5.3 mmol/L [facility] Chloride 101 98 - 110 mmol/L [facility] CO2 31 20 - 32 mmol/L [facility] Calcium 9.7 8.6 - 10.4 mg/dL [facility] Protein, sr 7.2 6.1 - 8.1 g/dL [facility] Albumin 4.7 3.6 - 5.1 g/dL [facility] GLOBULIN 2.5 1.9 - 3.7 g/dL (calc) [facility] Alb/glob ratio 1.9 1.0 - 2.5 (calc) [facility] Bilirubin, total 0.5 0.2 - 1.2 mg/dL [facility] Alk phos 138 37 - 153 U/L [facility] AST 15 10 - 35 U/L [facility] ALT (SGPT) 8 6 - 29 U/L [facility] Blood 06/06/2024 6:25 AM CARDIAC NURSE PRACTITIONER 06/06/2024 6:26 AM CARDIAC NURSE PRACTITIONER Narrative [facility] - 06/07/2024 3:32 AM CARDIAC NURSE PRACTITIONER FASTING:YES FASTING: YES Kristen COOPER LAB BLOOD ORDERABLES Final Result [facility] [address] [address] [address] * Pap and High Risk HPV, reflex to Genotyping (09/11/2022 9:33 AM CDT) CLINICAL INFORMATION: [facility] Comment:CERVICAL CANCER SCRE EN LMP [facility] Comment:MENOPAUSE 48YO Previous Pap [facility] Comment:NONE GIVEN Prev. Bx [facility] Comment:NONE GIVEN SOURCE: [facility] Comment:Cervix, Endocervix Pap, specimen adequacy [facility] Comment: Satisfactory for evaluation. Endocervical/transformation zone component present. HPV interp [facility] Comment:Negative for intraep ithelial lesion or malignancy. [employer] [facility] Comment: TLS, CT(ASCP) CT Screening Location: [address] [address] Comment [facility] Comment: EXPLANATORY NOTE: The Pap is a screening test for cervical cancer. It is not a diagnostic test and is subject to false negative and false positive results. It is most reliable when a satisfactory sample, regularly obtained, is submitted with relevant clinical findings and history, and when the Pap result is evaluated along with historic and current clinical information. Human papillomavirus DNA, High Risk E6/E7 Not Detected NOT DETECTED [facility] Comment: Not Detected High Risk HPV types (16,18,31,33,35,39,45,51,52, 56,58,59,66,68) were not detected. Other HPV types which cause anogenital lesions may be present. The significance of the other types of HPV in malignant processes has not been established. Methodology: Real Time PCR Thin prep 09/11/2022 9:33 AM CDT 09/12/2022 1:37 AM CDT us Kristen COOPER LAB CYTOLOGY ORDERABLES Fi nal Result [facility] [place] [address] [place] [address] [facility] [address] [facility] [place] [address] * Stool DNA - Cologuard (01/05/2021 6:15 AM CDT) Stool DNA - Cologuard Negative Negative [facility] (CLIA #:[id number]) Comment: NEGATIVE TEST RESULT. A negative Cologuard result indicates a low likelihood that a colorectal cancer (CRC) or advanced adenoma (adenomatous polyps with more advanced pre-malignant features) is present. The chance that a person with a negative Cologuard test has a colorectal cancer is less than 1 in 1500 (negative predictive value >99.9%) or has an advanced adenoma is less than 5.3% (negative predictive value 94.7%). These data are based on a prospective cross-sectional study of 10,000 individuals at average risk for colorectal cancer who were screened with both Cologuard and colonoscopy. (Ismael Chavez al, N Engl J Med 2014;370(14):1825-1085) The normal value (reference range) for this assay is negative. COLOGUARD RE-SCREENING RECOMMENDATION: Periodic colorectal cancer screening is an important part of preventive healthcare for asymptomatic individuals at average risk for colorectal cancer. Following a negative Cologuard result, the [place] Cancer Society and U.S. Multi-Society Task Force screening guidelines recommend a Cologuard re-screening interval of 3 years. References: [place] Cancer Society Guideline for Colorectal Cancer Screening: https://www.cancer.org/cancer/xrjrf-shzkgv-ekiakn/kbbnwsjlr-hqamstfse-rhbmcso/ac s-rec ommendations.html.; Leobardo DK, Micheal CR, Veronica GaK, Colorectal Cancer Screening: Recommendations for Physicians and Patients from the U.S. Multi-Society Task Force on Colorectal Cancer Screening , Am J Gastroenterology 2017; 112:0845-7466. TEST DESCRIPTION: Composite algorithmic analysis of stool DNA-biomarkers with hemoglobin immunoassay. Quantitative values of individual biomarkers are not reportable and are not associated with individual biomarker result reference ranges. Cologuard is intended for colorectal cancer screening of adults of either sex, 45 years or older, who are at average-risk for colorectal cancer (CRC). Cologuard has been approved for use by the U.S. FDA. The performance of Cologuard was established in a cross sectional study of average-risk adults aged 50-84. Cologuard performance in patients ages 45 to 49 years was estimated by sub-group analysis of near-age groups. Colonoscopies performed for a positive result may find as the most clinically significant lesion: colorectal cancer [4.0%], advanced adenoma (including sessile serrated polyps greater than or equal to 1cm diameter) [20%] or non- advanced adenoma [31%]; or no colorectal neoplasia [45%]. These estimates are derived from a prospective cross-sectional screening study of 10,000 individuals at average risk for colorectal cancer who were screened with both Cologuard and colonoscopy. (Ismael Chavez al, N Engl J Med 2014;370(14):0436-0669.) Cologuard may produce a false negative or false positive result (no colorectal cancer or precancerous polyp present at colonoscopy follow up). A negative Cologuard test result does not guarantee the absence of CRC or advanced adenoma (pre-cancer). The current Cologuard screening interval is every 3 years. ([place] Cancer Society and U.S. Multi-Society Task Force). Cologuard performance data in a 10,000 patient pivotal study using colonoscopy as the reference method can be accessed at the following location: www.Enabled Employment.Quotte/results. Additional description of the Cologuard test process, warnings and precautions can be found at www.Infomousrd.com. Stool 01/05/2021 6:15 AM CDT 01/07/2021 5:14 PM CDT Kristen COOPER LAB BODY FLUIDS AND STOOLS ORDERABLES Final Result [facility] (CLIA #:[id number]) [address] [place] [address] from Last 3 Months or Most Recently Relevant to Health Maintenance Insurance [facility] TRADITIONAL [facility] ACCESS Advance Directives For more information, please contact: [phone] * Full Code (Latest Code Status on File) Date Activated Date Inactivated Comments 09/30/2019 9:45 AM 10/05/2019 8:36 PM * Full Code Date Activated Date Inactivated Comments 08/19/2019 1:27 PM 08/19/2019 7:49 PM * Full Code Date Activated Date Inactivated Comments 07/08/2019 8:19 PM 07/09/2019 10:08 PM Care Teams Disease Management Nurse Relationship Specialty Start Date End Date Kristen Calabrese PA [address] [facility] [address] [place] [address] PCP - General Internal Medicine 08/18/21 Rich Jackson MD Referring Physician Otolaryngology 07/18/19 Jozef Reyes, SHANNON [address] [place] [address] Dentist Dental Forestry Technician 07/18/19 Froylan Thakkar MD [address] [place] [address] Medical Oncologist/Child Welfare Director Medical Oncology 07/18/19
--- OUTSIDE RECORDS SUMMARY | 2024-08-29 14:03 | XMS_ITS | Encounter Summary ---
Author Organization [facility] Healthcare Address [address] [place] [address] Care Team Providers Care Compliance Engineer Name Role Phone Kristen Calabrese Primary Care Provider [phone] Rich Jackson MD Unavailable [phone] Jozef Reyes DMD Unavailable [phone] Froylan Thakkar MD Unavailable [phone] Owen Epstein NP Primary Care Provider [phone] Kristen Calabrese Primary Care Provider [phone] Encounter Details Date Type Department Care Team (Late st Contact Info) Description 12/22/2019 Telephone [facility] Radiation Oncology [address] [facility] [place] [address] Elvira Jarvis MA Social History Tobacco Use Types Packs/Day Years Used Date Smoking Tobacco: Former Cigarettes Smokeless Tobacco: Never Comments:nicotine vape 5mg Alcohol Use Standard Drinks/Week Comments Not Currently 0 (1 standard drink = 0.6 oz pur e alcohol) holidays PHQ-2 Answer Date Recorded PHQ-2 Score 1 10/01/2019 Comments No Sex and Gender Information Value Date Recorded Sex Assigned at Not on file Legal Sex Female 5:59 PM SALES RECRUITER Gender Identity Not on file Sexual Orientation Not on file 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 Not on file Not on ashok e Not on file documented as of this encounter Plan of Treatment Not on file documented as of this encounter Visit Diagnoses Not on filedocumented in this encounter Care Teams Compliance Engineer Relationship Specialty Start Date End Date Kristen Calabrese PA [address] [place] [address] PCP - General Internal Medicine 09/24/18 07/03/21 Owen Epstein, BRYANT [address] [place] [address] PCP - General Nurse Practitioner 07/04/21 08/17/21 Kristen Calabrese PA [address] [place] [address] PCP - General Internal Medicine 08/18/21 Rich Jackson MD [address] [place] [address] Referring Physician Otolaryngology 07/18/19 Jozef Reyes DMD [address] [place] [address] Dentist Dental Shipping Clerk Packing 07/18/19 Froylan Thakkar MD [address] [place] [address] Medical Oncologist/Hospice Home Health Aide Medical Oncology 07/18/19 documented as of this encounter
--- OUTSIDE RECORDS SUMMARY | 2024-08-29 14:03 | XMS_ITS ---
Author Organization [facility] [facility] [address] Address [address] [place] [address] Care Team Providers Care Fire Crew Worker Name Role Phone Rich Jackson MD Unavailable Jozef Reyes DMD Unavailable [phone] Froylan Thakkar MD Unavailable Kristen Calabrese Primary Care Provider [phone] Active Problems Problem Noted Date Diagnosed Date Need for influenza vaccination 03/28/2024 Assessment & Plan (03/28/2024 11:29 AM SINGLE END SEWER): Flu vaccine updated in the office today Breast cancer screening by mammogram 03/28/2024 Assessment & Plan (03/28/2024 11:29 AM SINGLE END SEWER): Mammogram order provided BMI 27.0-27.9,adult 2023 Assessment & Plan (03/28/2024 7:14 AM SINGLE END SEWER): Weight/BMI is in healthy range. Continue healthy lifestyle to maintain. Assessment & Plan (09/10/2023 7:41 AM CDT): Weight/BMI is in healthy range. Continue healthy lifestyle to maintain. Assessment & Plan (08/03/2023 7:50 AM CDT): Weight/BMI is in healthy range. Continue healthy lifestyle to maintain. Assessment & Plan (2023 10:32 AM SINGLE END SEWER): Weight/BMI is in healthy range. Continue healthy lifestyle to maintain. Menopause 09/11/2022 Assessment & Plan (03/28/2024 11:29 AM SINGLE END SEWER): Check DEXA Assessment & Plan (09/11/2022 9:54 [...] 06/14/2022 Assessment & Plan (06/14/2022 8:33 AM SINGLE END SEWER): This is a significant, separately identifiable problem [...] 11/01/2021 Assessment & Plan (03/28/2024 11:28 AM SINGLE END SEWER): Encouraged healthy lifestyle, good nutrition and exercise. Encouraged Calcium and Vitamin D and weight bearing exercise for bone health. Reviewed immunizations Reviewed age appropirate screenings. Assessment & Plan (2023 10:32 AM SINGLE END SEWER): Encouraged healthy lifestyle, good nutrition and exercise. Encouraged Calcium and Vitamin D and weight bearing exercise for bone health. Reviewed immunizations Reviewed age appropirate screenings. Assessment & Plan (06/14/2022 8:31 AM SINGLE END SEWER): Encouraged healthy lifestyle, good nutrition and exercise. [...] 05/25/2021 Assessment & Plan (03/28/2024 11:29 AM SINGLE END SEWER): Continue levothyroxine. Monitor labs. Assessment & Plan (08/19/2023 10:26 AM CDT): Continue levothyroxine 25 mcg. Awaiting lab results Assessment & Plan (2023 10:32 AM SINGLE END SEWER): Continue levothyroxine. Monitor labs. Assessment & Plan (06/14/2022 8:31 AM SINGLE END SEWER): Continue levothyroxine. Monitor labs. Assessment & Plan (11/01/2021 7:07 PM CDT): Continue levothyroxine. Monitor labs. Assessment & Plan (08/21/2021 10:43 AM CDT): Continue levothyroxine. Monitor labs. Assessment & Plan (06/26/2021 5:40 PM SINGLE END SEWER): Patient's TSH (thyroid stimulating hormone) is elevated. [...] 01/28/2021 Assessment & Plan (03/28/2024 11:29 AM SINGLE END SEWER): Probably multifactorial. Check labs and followup to re-evaluate Assessment & Plan (2023 10:32 AM SINGLE END SEWER): Probably multifactorial. Check labs and followup to re-evaluate Assessment & Plan (06/14/2022 8:31 AM SINGLE END SEWER): Probably multifactorial. Check labs and followup to re-evaluate Assessment & Plan (08/21/2021 10:43 AM CDT): Probably multifactorial. Check labs and followup to re-evaluate Assessment & Plan (01/28/2021 9:43 AM CDT): Probably multifactorial. Check labs and followup to re-evaluate Pre-diabetes 02/28/2020 Assessment & Plan (03/28/2024 11:29 AM SINGLE END SEWER): Pre-diabetes/hyperglycemia is a precursor to Dm. Stressed [...] available Assessment & Plan (2023 10:31 AM SINGLE END SEWER): Pre-diabetes/hyperglycemia is a precursor to Dm. Stressed importance of working on diet (decrease your simple sugars and one carbohydrate with each meal) and increase you exercise to achieve weight loss and this will help prevent you from progressing to diabetes. Assessment & Plan (06/14/2022 8:30 AM SINGLE END SEWER): Pre-diabetes/hyperglycemia is a precursor to Dm. Stressed [...] diabetes. Assessment & Plan (07/17/2020 8:27 PM SINGLE END SEWER): Pre-diabetes/hyperglycemia is a precursor to Dm. Stressed [...] 02/28/2020 Assessment & Plan (06/14/2022 8:30 AM SINGLE END SEWER): Continue with the trazodone. She is seen improvement with 50 mg. Having a couple more difficult nights. Advised can increase by half tab to a tab. Will continue to monitor Assessment & Plan (11/01/2021 7:07 PM CDT): Continue trazodone Assessment & Plan (01/28/2021 9:43 AM CDT): Continue Trazodone Assessment & Plan (07/17/2020 8:29 PM SINGLE END SEWER): Sleeping well with Trazodone Assessment & Plan (04/14/2020 10:46 AM SINGLE END SEWER): Continue Trazodone 50mg 1-2 tabs hs as [...] 09/30/2019 Assessment & Plan (07/17/2020 8:26 PM SINGLE END SEWER): Continue protein supplement as difficulty eating the [...] noted elsewhere - Cont oral rinses - MATE SHIP eval to determine safety of swallow if patient desires some oral intake Assessment & Plan (10/04/2019 12:33 PM CDT): - 06/08 to cancer treatment. Significant mucositis but no thrush - Pain control noted elsewhere - Cont oral rinses - MATE SHIP eval to determine safety of swallow if patient desires some oral intake Assessment & Plan (10/03/2019 11:47 AM CDT): - 06/08 to cancer treatment. Significant mucositis but no thrush - Pain control noted elsewhere - Cont oral rinses - MATE SHIP eval to determine safety of swallow if patient desires some oral intake Assessment & Plan (10/02/2019 12:13 PM CDT): - 06/08 to cancer treatment. Significant mucositis but no thrush - Pain control noted elsewhere - Cont oral rinses - MATE SHIP eval to determine safety of swallow if patient desires some oral intake Assessment & Plan (10/01/2019 2:36 PM CDT): - 06/08 to cancer treatment. Significant mucositis but no thrush - Pain control noted elsewhere - Cont oral rinses - MATE SHIP eval to determine safety of swallow if patient desires some oral intake Assessment & Plan (09/30/2019 4:25 PM CDT): - 06/08 to cancer treatment. Significant mucositis but no thrush - Pain control noted elsewhere - Cont oral rinses - MATE SHIP eval to determine safety of swallow if [...] ONC Squamous cell carcinoma of ventral tongue ([facility]) 06/26/2019 Cancer Staging:Clinical:Stage III(cT1, cN1, cM0) - Signed by Silvano Groves MD on 07/29/2019 Pathologic:Stage MERCEDES(pT2, pN2a, cM0) - Signed by Silvano Groves MD on 07/29/2019 Overview (01/13/2020): DIAGNOSIS: T1N0 left oral tongue carcinoma PROCEDURE PERFORMED: (Manuel 07/08/2019) Left partial glossectomy Left neck dissection Full thickness skin graft from left neck to left tongue 4 x 6 cm 1. 10/07/19, completion of POACRT.(Thakkar/[place]) Assessment & Plan (2023 10:30 AM SINGLE END SEWER): Continue with ENT and her rad Onc. Continuing very close monitoring and follow-up. She was supposed to have CT of the chest done in August of 2022 but patient canceled. Stressed the importance of her following up with to get this reordered to continue close follow-up. She verbalizes understanding will reach out for assistance with his office Assessment & Plan (06/14/2022 8:30 AM SINGLE END SEWER): Continue close surveillance with . It appears [...] radiation. Follows with Dr. Reyna, Dr. Manuel iVllegas - Monitor counts - Pain control - Anti-emetics PRN Assessment & Plan (10/04/2019 12:33 PM CDT): -s/p surgery, chemo with ongoing radiation. Follows with Dr. Reyna, Dr. Manuel Villegas - Monitor counts - Pain control - Anti-emetics PRN Assessment & Plan (10/03/2019 11:47 AM CDT): -s/p surgery, chemo with ongoing radiation. Follows with Dr Bijan Coronado Dr. Jackson - Monitor counts - Pain control - [...] 12/01/2019. Assessment & Plan (04/14/2020 10:43 AM SINGLE END SEWER): 11/2019 CT chest was stable. Dr. Thakkar, [...] 12/21/2018 Assessment & Plan (03/28/2024 11:29 AM SINGLE END SEWER): Patient is due for colon cancer screening. Prefers Cologuard. Order placed Assessment & Plan (07/17/2020 8:28 PM SINGLE END SEWER): Order placed for cologuard Assessment & Plan (04/14/2020 10:44 AM SINGLE END SEWER): Encouraged to get the colonoscopy scheduled Assessment & Plan (02/28/2020 10:12 PM CDT): Refer to Dr. Brown for screening colonoscopy Assessment & Plan (12/21/2018 11:02 PM CDT): Patient prefers cologuard. Order sent. Gastroesophageal reflux disease with esophagitis 12/21/2018 Assessment & Plan (2023 10:31 AM SINGLE END SEWER): Continue with esomeprazole daily. Assessment & Plan (06/14/2022 8:30 AM SINGLE END SEWER): Continue PPI Assessment & Plan (11/01/2021 7:04 PM CDT): Continue use omeprazole Assessment & Plan (01/28/2021 9:43 AM CDT): Continue PPI as stable Assessment & Plan (07/17/2020 8:26 PM SINGLE END SEWER): Continue PPI Assessment & Plan (12/21/2018 11:01 PM CDT): Stable with Nexium. Refills available in pharmacy History of cigarette smoking 12/17/2018 Overview (08/11/2019): Quit 06/2019 Assessment & Plan (08/11/2019 2:21 PM CDT): Quit smoking prior to her surgery with the help of the Wellbutrin. Will continue as helping with depression/anxiety also. Assessment & Plan (05/30/2019 12:10 PM SINGLE END SEWER): Encouraged smoking cessation. Discussed 3 minutes. Reviewed [...] consider. Assessment & Plan (05/19/2019 12:48 AM SINGLE END SEWER): Encouraged smoking cessation. Discussed 3 minutes. Reviewed options for assistance with cessation. Reviewed care home sequela associated with smoking. Pt declines assistance at this time but may contact the office at anytime for further help as they desire. Assessment & Plan (12/21/2018 11:00 PM CDT): Offered low-dose CT. Will order. Mixed hyperlipidemia 09/27/2018 Assessment & Plan (03/28/2024 11:29 AM SINGLE END SEWER): Encouraged patient to follow low fat/low chol [...] 10 Assessment & Plan (2023 10:30 AM SINGLE END SEWER): Encouraged patient to follow low fat/low chol diet like the Mediterranean diet. Increase good fats in the diet. Increase exercise. Monitor labs as needed. Continue atorvastatin Assessment & Plan (06/14/2022 8:29 AM SINGLE END SEWER): Encouraged patient to follow low fat/low chol [...] atorvastatin Assessment & Plan (07/10/2021 2:04 PM SINGLE END SEWER): Continue with medication and plan of treatment for hyperlipidemia. Talked about diet, exercise, and will get last lab work. Assessment & Plan (01/28/2021 9:41 AM CDT): Encouraged patient to follow fat/low chol diet like the Mediterranean diet. Increase good fats in the diet. Increase exercise. Monitor labs as needed. Continue statin Assessment & Plan (07/17/2020 8:27 PM SINGLE END SEWER): Encouraged patient to follow fat/low chol diet [...] meds Assessment & Plan (05/30/2019 12:06 PM SINGLE END SEWER): Encouraged patient to continue low fat/low chol [...] 09/27/2018 Assessment & Plan (03/28/2024 11:28 AM SINGLE END SEWER): Managed by psychiatrist. Currently on p.r.n. Xanax, [...] reassess. Assessment & Plan (07/17/2020 8:28 PM SINGLE END SEWER): Continue Welbutrin and lexapro with prn xanax [...] prn Assessment & Plan (05/30/2019 12:06 PM SINGLE END SEWER): Increase the Lexapro to 20mg Assessment & Plan (12/21/2018 11:00 PM CDT): See depression Moderate episode of recurrent major depressive d isorder 09/27/2018 Assessment & Plan (2023 10:31 AM SINGLE END SEWER): Continue per Dr. Terry. She still on Trintellix and Wellbutrin Assessment & Plan (06/14/2022 8:30 AM SINGLE END SEWER): Continue per Dr. Terry Assessment & Plan (11/01/2021 7:04 PM CDT): He continue per Dr. coley. She still awaiting ADD evaluation results. She is on BuSpar Lexapro Wellbutrin and p.r.n. Xanax Assessment & Plan (06/26/2021 5:39 PM SINGLE END SEWER): Continue Lexapro all Butrans BuSpar and Xanax Assessment & Plan (07/17/2020 8:28 PM SINGLE END SEWER): Continue wellbutrin, lexapro and xanax prn Assessment & Plan (04/14/2020 10:44 AM SINGLE END SEWER): Continue Wellbutrin and Lexapro and prn Xanax [...] COVID. Assessment & Plan (05/30/2019 12:10 PM SINGLE END SEWER): Increase the Lexapro to 20mg. Reassess in [...] and encouraged to use sparingly as needed Current Treatment and Therapy Plans No current plan information found. Past Treatment and Therapy Plans Oncology Chemotherapy Treatment Plan Name Start Date Discontinue Date Treatment Medications Discontinue Reason Plan Provider Cycles [facility] - Phase 2 - - EC-18/Placeb o + Cisplatin 0 10/17/2019 CISplatin (PLATINOL)CISp latin (PLATINOL) IVPB [facility] 250 [facility] EC-18/placebo (/)INV-[facility] Olanzapine (/) Therapy Complete Froylan Thakkar MD 1 of 1 cycle started [facility] Neck - Phase 2 - - EC-18/Placeb o + Cisplatin 0 08/20/2019 CISplatin (PLATINOL)INV- [facility] EC-18/placebo () Protocol Amendment/Marsh ge Froylan Thakkar R., MD Treatment not started Oncology Supportive Care Plan Name Start Date Discontinue Date Treatment Medications Discontinue Reason Plan Provider Alteplase (CATHFLO ACTIVASE) - orders for occluded catheters 08/27/2019 11/30/2021 No medications scheduled. Therapy Complete Vinh Lucia MD Specialty Infusion Treatment Plan Name Start Date Discontinue Date Treatment Medications Discontinue Reason Plan Provider Hydration Therapy Plan 09/16/2019 07/02/2023 No medications scheduled. Automatic discontinuation of dormant plans Armando Reyna MD Radiation Treatments * Course C1 08/20/2019 - 10/07/2019 Treatment Period Energy Fraction Dose Fractions Total Dose Plans Planned Bilateral HN 08/20/2019 - 10/07/2019 200 33 / 6,600 Reference Points Delivered PTV 66 08/20/2019 - 10/07/2019 6,600 Lifetime Dose Tracking * Chemical Lifetime Dose Automatic Entry Manual Entr y Fluoro Time 8 minutes 8 minutes 0 minutes Air kerma at the reference point (Ka,r) 31 mGy 3 1 mGy 0 mGy DLP 3,703 mGycm 3,703 mGycm 0 mGycm Resolved Problems Problem Noted Date Diagnosed Date [...] fully resolve Fall against object 09/10/2023 03/28/20 Assessment & Plan (09/10/2023 8:02 AM CDT): [...] for further evaluation BMI 26.0-26.9,adult 09/11/2022 03/26/20 Assessment & Plan (09/11/2022 8:50 AM CDT): [...] 23 Assessment & Plan (06/14/2022 8:04 AM SINGLE END SEWER): Weight/BMI is in healthy range. Continue healthy [...] 03/28/2024 Assessment & Plan (06/14/2022 8:31 AM SINGLE END SEWER): Continues to use the gabapentin for persistent [...] provided Assessment & Plan (06/14/2022 8:31 AM SINGLE END SEWER): Mammogram order provided Assessment & Plan (08/21/2021 10:48 AM CDT): Mammogram order provided. Will mail to her home address Immunization due 07/10/2021 11/01/2021 Assessment & Plan (07/10/2021 2:27 PM SINGLE END SEWER): Talked about her immunization status and importance [...] 01/28/2021 Assessment & Plan (07/17/2020 8:30 PM SINGLE END SEWER): Continue to push high protein in supplement to maintain/increase weight. Need for immunization against influenza 02/28/2020 07/16/2020 Assessment & Plan (02/28/2020 10:13 PM CDT): Updated in office today Abnormal mammogram of right breast 02/28/2020 11/01/2021 Assessment & Plan (04/14/2020 10:43 AM SINGLE END SEWER): Stressed importance of f.u mammogram/US to avoid [...] 022 Assessment & Plan (07/17/2020 8:27 PM SINGLE END SEWER): Encouraged healthy lifestyle, good nutrition and exercise. [...] 22 Assessment & Plan (05/25/2021 7:40 AM SINGLE END SEWER): Weight/BMI is in healthy range. Continue healthy lifestyle to maintain. Assessment & Plan (08/11/2019 1:48 PM CDT): Weight/BMI is in healthy range. Continue healthy lifestyle to maintain. Other fatigue 05/30/2019 07/16/2020 Assessment & Plan (02/28/2020 10:11 PM CDT): Probably multifactorial. Check labs and followup to re-evaluate Assessment & Plan (05/30/2019 12:11 PM SINGLE END SEWER): Probably multifactorial. Check labs and followup to re-evaluate Diabetes mellitus screening 05/30/2019 08/11/2019 Assessment & Plan (05/30/2019 12:09 PM SINGLE END SEWER): Check labs Acute non-recurrent maxillary sinusitis 05/19/2019 08/11/2019 Assessment & Plan (05/30/2019 12:05 PM SINGLE END SEWER): Improved on the left side but still having facial pressure and tongue lesion on the left. Will await bx results on the lesion to determine further followup. Assessment & Plan (05/19/2019 12:47 AM SINGLE END SEWER): Start antibiotic, antihistamine, Mucinex and Steroid nasal spray. Push fluids. Rest. Supportive care. If sxs worsen or don\'t improve, pt is to followup in the office. Tongue lesion 05/19/2019 08/11/2019 Assessment & Plan (05/30/2019 12:15 PM SINGLE END SEWER): Pt already has appointment with oral surgeon for biopsy of tongue lesion. This was set up by her dentist. Will await pathology report. If positive, discussed may need referral to ENT and will be glad to assist. Discussed options including ENT/[facility] physicians. She will consider. 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 Recheck in 2 weeks after completeing the antibiotic. If still present, will refer to ENT. BMI 28.0-28.9,adult 05/14/2019 08/11/19 20 Assessment & Plan (05/30/2019 12:07 PM SINGLE END SEWER): Weight/BMI is in healthy range. Continue healthy lifestyle to maintain. Assessment & Plan (05/14/2019 1:50 PM SINGLE END SEWER): Weight/BMI is in healthy range. Continue healthy lifestyle to maintain. Breast cancer screening 12/21/2018 11 Assessment & Plan (12/21/2018 11:01 PM CDT): [...] Advised I would be glad to provide [place] paperwork for her to keep her appointments [...]
--- OUTSIDE RECORDS SUMMARY | 2024-08-29 14:03 | XMS_ITS | Encounter Summary ---
Author Organization [facility] Healthcare Address [address] [place] [address] Care Team Providers Care Apprentice Jockey Name Role Phone Rich Jackson MD Unavailable [phone] Jozef Reyes DMD Unavailable [phone] Froylan Thakkar MD Unavailable [phone] Kristen Calabrese Primary Care Provider [phone] Encounter Details Date Type Department Care Team (Late st Contact Info) Description 12/26/2021 Telephone [facility] Radiation Oncology [address] [facility] [place] [address] Elvira Jarvis MA Social History Tobacco Use Types Packs/Day Years Used Date Smoking Tobacco: Former Cigarettes Smokeless Tobacco: Never Comments:nicotine vape 5mg Alcohol Use Standard Drinks/Week Comments Not Currently 0 (1 standard drink = 0.6 oz pur e alcohol) holidays AUDIT-C Answer Date Recorded Q1: How often do you have a drink containing alc ohol? 2-4 times a month 05/25/2021 Q2: How many drinks containi ng alcohol do you have on a typical day when you are drinking? 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 Not on file Not on ashok e Not on file documented as of this encounter Plan of Treatment Not on file documented as of this encounter Visit Diagnoses Not on filedocumented in this encounter Care Teams Apprentice Jockey Relationship Specialty Start Date End Date Kristen Calabrese PA [address] [place] [address] PCP - General Internal Medicine 08/18/21 Rich Jackson MD Referring Physician Otolaryngology 07/18/19 Jozef Reyes, SHANNON [address] [place] [address] Dentist Dental Band Teacher 07/18/19 Froylan Thakkar MD [address] [place] [address] Medical Oncologist/Team Member Medical Oncology 07/18/19 documented as of this encounter
--- OUTSIDE RECORDS SUMMARY | 2024-08-29 14:03 | XMS_ITS | Encounter Summary ---
Author Organization [facility] Healthcare Address [address] [place] [address] Care Team Providers Care Entry Level Mechanical Engineer Name Role Phone Rich Jackson MD Unavailable [phone] Jozef Reyes DMD Unavailable [phone] Froylan Thakkar MD Unavailable [phone] Kristen Calabrese Primary Care Provider [phone] Encounter Details Date Type Department Care Team (Late st Contact Info) Description 08/06/2024 Results Follow-Up [facility] Medical Group Family Medicine [address] [place] [address] Kristen Calabrese PA [address] [place] [address] Social History Tobacco Use Types Packs/Day Years Used Date Smoking Tobacco: Former Cigarettes 0.5 5.3 S tarted: 2020 Smokeless Tobacco: Never Comments:nicotine vape 5mg Alcohol [...] on file 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 documented in this encounter Plan of Treatment Not on file documented as of this encounter Visit Diagnoses Not on filedocumented in this encounter Care Teams Entry Level Mechanical Engineer Relationship Specialty Start Date End Date Kristen Calabrese PA [address] [address] PCP - General Internal Medicine 08/18/21 Rich Jackson MD Referring Physician Otolaryngology 07/18/19 Jozef Reyes DMD [address] [place] [address] Dentist Dental Enterprise Infrastructure Architect 07/18/19 Froylan Thakkar MD [address] [place] [address] Medical Oncologist/Threat Monitoring Analyst Medical Oncology 07/18/19 documented as of this encounter
--- OUTSIDE RECORDS SUMMARY | 2024-08-29 14:03 | XMS_ITS | Encounter Summary ---
Author Organization [facility] Healthcare Address [address] [place] [address] Care Team Providers Care Billing Department Supervisor Name Role Phone Kristen Calabrese Primary Care Provider [phone] Rich Jackson MD Unavailable [phone] Jozef Reyes DMD Unavailable [phone] Froylan Thakkar MD Unavailable [phone] Owen Epstein NP Primary Care Provider [phone] Kristen Calabrese Primary Care Provider [phone] Encounter Details Date Type Department Care Team (Late st Contact Info) Description 03/09/2020 Telephone 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 on file Not on ashok e Not on file documented as of this encounter Plan of Treatment Not on file documented as of this encounter Visit Diagnoses Not on filedocumented in this encounter Care Teams Billing Department Supervisor Relationship Specialty Start Date End Date Kristen Calabrese PA [address] [place] [address] PCP - General Internal Medicine 09/24/18 07/03/21 Owen Epstein, BRYANT [address] [place] [address] PCP - General Nurse Practitioner 07/04/21 08/17/21 Kristen Calabrese PA [address] [place] [address] PCP - General Internal Medicine 08/18/21 Rich Jackson MD [address] [place] [address] Referring Physician Otolaryngology 07/18/19 Jozef Reyes DMD [address] [place] [address] Dentist Dental Windows Systems Administrator 07/18/19 Froylan Thakkar MD [address] [place] [address] Medical Oncologist/Line Maintenance Technician Medical Oncology 07/18/19 documented as of this encounter
--- OUTSIDE RECORDS SUMMARY | 2024-08-29 14:03 | XMS_ITS | Clinical Summary ---
Author Organization [facility] [address] [facility] Address [address] [place] [address] Care Team Providers Care Signals Collector/Analyst Name Role Phone Rich Jackson MD Unavailable Jozef Reyes DMD Unavailable [phone] Froylan Thakkar MD Unavailable [phone] Kristen Calabrese Primary Care Provider [phone] Allergies Active Allergy Reactions Criticality Noted Date [...] 03/28/2024 Assessment & Plan (03/28/2024 11:29 AM PETROLEUM GEOLOGIST): Flu vaccine updated in the office today Breast cancer screening by mammogram 03/28/2024 Assessment & Plan (03/28/2024 11:29 AM PETROLEUM GEOLOGIST): Mammogram order provided BMI 27.0-27.9,adult 2023 Assessment & Plan (03/28/2024 7:14 AM PETROLEUM GEOLOGIST): Weight/BMI is in healthy range. Continue healthy lifestyle to maintain. Assessment & Plan (09/10/2023 7:41 AM CDT): Weight/BMI is in healthy range. Continue healthy lifestyle to maintain. Assessment & Plan (08/03/2023 7:50 AM CDT): Weight/BMI is in healthy range. Continue healthy lifestyle to maintain. Assessment & Plan (2023 10:32 AM PETROLEUM GEOLOGIST): Weight/BMI is in healthy range. Continue healthy lifestyle to maintain. Menopause 09/11/2022 Assessment & Plan (03/28/2024 11:29 AM PETROLEUM GEOLOGIST): Check DEXA Assessment & Plan (09/11/2022 9:54 [...] 06/14/2022 Assessment & Plan (06/14/2022 8:33 AM PETROLEUM GEOLOGIST): This is a significant, separately identifiable problem [...] 11/01/2021 Assessment & Plan (03/28/2024 11:28 AM PETROLEUM GEOLOGIST): Encouraged healthy lifestyle, good nutrition and exercise. Encouraged Calcium and Vitamin D and weight bearing exercise for bone health. Reviewed immunizations Reviewed age appropirate screenings. Assessment & Plan (2023 10:32 AM PETROLEUM GEOLOGIST): Encouraged healthy lifestyle, good nutrition and exercise. Encouraged Calcium and Vitamin D and weight bearing exercise for bone health. Reviewed immunizations Reviewed age appropirate screenings. Assessment & Plan (06/14/2022 8:31 AM PETROLEUM GEOLOGIST): Encouraged healthy lifestyle, good nutrition and exercise. [...] 05/25/2021 Assessment & Plan (03/28/2024 11:29 AM PETROLEUM GEOLOGIST): Continue levothyroxine. Monitor labs. Assessment & Plan (08/19/2023 10:26 AM CDT): Continue levothyroxine 25 mcg. Awaiting lab results Assessment & Plan (2023 10:32 AM PETROLEUM GEOLOGIST): Continue levothyroxine. Monitor labs. Assessment & Plan (06/14/2022 8:31 AM PETROLEUM GEOLOGIST): Continue levothyroxine. Monitor labs. Assessment & Plan (11/01/2021 7:07 PM CDT): Continue levothyroxine. Monitor labs. Assessment & Plan (08/21/2021 10:43 AM CDT): Continue levothyroxine. Monitor labs. Assessment & Plan (06/26/2021 5:40 PM PETROLEUM GEOLOGIST): Patient's TSH (thyroid stimulating hormone) is elevated. [...] 01/28/2021 Assessment & Plan (03/28/2024 11:29 AM PETROLEUM GEOLOGIST): Probably multifactorial. Check labs and followup to re-evaluate Assessment & Plan (2023 10:32 AM PETROLEUM GEOLOGIST): Probably multifactorial. Check labs and followup to re-evaluate Assessment & Plan (06/14/2022 8:31 AM PETROLEUM GEOLOGIST): Probably multifactorial. Check labs and followup to re-evaluate Assessment & Plan (08/21/2021 10:43 AM CDT): Probably multifactorial. Check labs and followup to re-evaluate Assessment & Plan (01/28/2021 9:43 AM CDT): Probably multifactorial. Check labs and followup to re-evaluate Pre-diabetes 02/28/2020 Assessment & Plan (03/28/2024 11:29 AM PETROLEUM GEOLOGIST): Pre-diabetes/hyperglycemia is a precursor to Dm. Stressed [...] available Assessment & Plan (2023 10:31 AM PETROLEUM GEOLOGIST): Pre-diabetes/hyperglycemia is a precursor to Dm. Stressed importance of working on diet (decrease your simple sugars and one carbohydrate with each meal) and increase you exercise to achieve weight loss and this will help prevent you from progressing to diabetes. Assessment & Plan (06/14/2022 8:30 AM PETROLEUM GEOLOGIST): Pre-diabetes/hyperglycemia is a precursor to Dm. Stressed [...] diabetes. Assessment & Plan (07/17/2020 8:27 PM PETROLEUM GEOLOGIST): Pre-diabetes/hyperglycemia is a precursor to Dm. Stressed [...] 02/28/2020 Assessment & Plan (06/14/2022 8:30 AM PETROLEUM GEOLOGIST): Continue with the trazodone. She is seen improvement with 50 mg. Having a couple more difficult nights. Advised can increase by half tab to a tab. Will continue to monitor Assessment & Plan (11/01/2021 7:07 PM CDT): Continue trazodone Assessment & Plan (01/28/2021 9:43 AM CDT): Continue Trazodone Assessment & Plan (07/17/2020 8:29 PM PETROLEUM GEOLOGIST): Sleeping well with Trazodone Assessment & Plan (04/14/2020 10:46 AM PETROLEUM GEOLOGIST): Continue Trazodone 50mg 1-2 tabs hs as [...] 09/30/2019 Assessment & Plan (07/17/2020 8:26 PM PETROLEUM GEOLOGIST): Continue protein supplement as difficulty eating the [...] & Plan (10/05/2019 12:31 PM CDT): - 2/2 to cancer treatment. Significant mucositis but no thrush - Pain control noted elsewhere - Cont oral rinses - EMBROIDERY OPERATOR eval to determine safety of swallow if patient desires some oral intake Assessment & Plan (10/04/2019 12:33 PM CDT): - 2/2 to cancer treatment. Significant mucositis but no thrush - Pain control noted elsewhere - Cont oral rinses - EMBROIDERY OPERATOR eval to determine safety of swallow if patient desires some oral intake Assessment & Plan (10/03/2019 11:47 AM CDT): - 06/08 to cancer treatment. Significant mucositis but no thrush - Pain control noted elsewhere - Cont oral rinses - EMBROIDERY OPERATOR eval to determine safety of swallow if patient desires some oral intake Assessment & Plan (10/02/2019 12:13 PM CDT): - 06/08 to cancer treatment. Significant mucositis but no thrush - Pain control noted elsewhere - Cont oral rinses - EMBROIDERY OPERATOR eval to determine safety of swallow if patient desires some oral intake Assessment & Plan (10/01/2019 2:36 PM CDT): - 06/08 to cancer treatment. Significant mucositis but no thrush - Pain control noted elsewhere - Cont oral rinses - EMBROIDERY OPERATOR eval to determine safety of swallow if patient desires some oral intake Assessment & Plan (09/30/2019 4:25 PM CDT): - 06/08 to cancer treatment. 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 Continuing very close monitoring and follow-up. She was supposed to have CT of the chest done in August of 2022 but patient canceled. Stressed the importance of her following up with to get this reordered to continue close follow-up. She verbalizes understanding will reach out for assistance with his office Assessment & Plan (06/14/2022 8:30 AM PETROLEUM GEOLOGIST): Continue close surveillance with . It appears [...] chemo with ongoing radiation. Follows with Dr. ThorstDr Bijan bowen Dr. Jackson - Monitor counts - Pain [...] 12/01/2019. Assessment & Plan (04/14/2020 10:43 AM PETROLEUM GEOLOGIST): 11/2019 CT chest was stable. Dr. Thakkar, [...] 12/21/2018 Assessment & Plan (03/28/2024 11:29 AM PETROLEUM GEOLOGIST): Patient is due for colon cancer screening. Prefers Cologuard. Order placed Assessment & Plan (07/17/2020 8:28 PM PETROLEUM GEOLOGIST): Order placed for cologuard Assessment & Plan (04/14/2020 10:44 AM PETROLEUM GEOLOGIST): Encouraged to get the colonoscopy scheduled Assessment & Plan (02/28/2020 10:12 PM CDT): Refer to Dr. Brown for screening colonoscopy Assessment & Plan (12/21/2018 11:02 PM CDT): Patient prefers cologuard. Order sent. Gastroesophageal reflux disease with esophagitis 12/21/2018 Assessment & Plan (2023 10:31 AM PETROLEUM GEOLOGIST): Continue with esomeprazole daily. Assessment & Plan (06/14/2022 8:30 AM PETROLEUM GEOLOGIST): Continue PPI Assessment & Plan (11/01/2021 7:04 PM CDT): Continue use omeprazole Assessment & Plan (01/28/2021 9:43 AM CDT): Continue PPI as stable Assessment & Plan (07/17/2020 8:26 PM PETROLEUM GEOLOGIST): Continue PPI Assessment & Plan (12/21/2018 11:01 PM CDT): Stable with Nexium. Refills available in pharmacy History of cigarette smoking 12/17/2018 Overview (08/11/2019): Quit 06/2019 Assessment & Plan (08/11/2019 2:21 PM CDT): Quit smoking prior to her surgery with the help of the Wellbutrin. Will continue as helping with depression/anxiety also. Assessment & Plan (05/30/2019 12:10 PM PETROLEUM GEOLOGIST): Encouraged smoking cessation. Discussed 3 minutes. Reviewed options for assistance with cessation. 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 Pt declines assistance at this time but may contact the office at anytime for further help as they desire. Increased the lexapro to 20mg to see if helps with stress smoking but discussed at length considering adding Wellbutrin. She will consider. Assessment & Plan (05/19/2019 12:48 AM PETROLEUM GEOLOGIST): Encouraged smoking cessation. Discussed 3 minutes. Reviewed options for assistance with cessation. Reviewed retirement sequela associated with smoking. Pt declines assistance at this time but may contact the office at anytime for further help as they desire. Assessment & Plan (12/21/2018 11:00 PM CDT): Offered low-dose CT. Will order. Mixed hyperlipidemia 09/27/2018 Assessment & Plan (03/28/2024 11:29 AM PETROLEUM GEOLOGIST): Encouraged patient to follow low fat/low chol [...] 10 Assessment & Plan (2023 10:30 AM PETROLEUM GEOLOGIST): Encouraged patient to follow low fat/low chol diet like the Mediterranean diet. Increase good fats in the diet. Increase exercise. Monitor labs as needed. Continue atorvastatin Assessment & Plan (06/14/2022 8:29 AM PETROLEUM GEOLOGIST): Encouraged patient to follow low fat/low chol [...] atorvastatin Assessment & Plan (07/10/2021 2:04 PM PETROLEUM GEOLOGIST): Continue with medication and plan of treatment for hyperlipidemia. Talked about diet, exercise, and will get last lab work. Assessment & Plan (01/28/2021 9:41 AM CDT): Encouraged patient to follow fat/low chol diet like the Mediterranean diet. Increase good fats in the diet. Increase exercise. Monitor labs as needed. Continue statin Assessment & Plan (07/17/2020 8:27 PM PETROLEUM GEOLOGIST): Encouraged patient to follow fat/low chol diet [...] meds Assessment & Plan (05/30/2019 12:06 PM PETROLEUM GEOLOGIST): Encouraged patient to continue low fat/low chol [...] 09/27/2018 Assessment & Plan (03/28/2024 11:28 AM PETROLEUM GEOLOGIST): Managed by psychiatrist. Currently on p.r.n. Xanax, [...] reassess. Assessment & Plan (07/17/2020 8:28 PM PETROLEUM GEOLOGIST): Continue Welbutrin and lexapro with prn xanax [...] prn Assessment & Plan (05/30/2019 12:06 PM PETROLEUM GEOLOGIST): Increase the Lexapro to 20mg Assessment & Plan (12/21/2018 11:00 PM CDT): See depression Moderate episode of recurrent major depressive d isorder 09/27/2018 Assessment & Plan (2023 10:31 AM PETROLEUM GEOLOGIST): Continue per Dr. Terry. She still on Trintellix and Wellbutrin Assessment & Plan (06/14/2022 8:30 AM PETROLEUM GEOLOGIST): Continue per Dr. Terry Assessment & Plan (11/01/2021 7:04 PM CDT): He continue per Dr. coley. She still awaiting ADD evaluation results. She is on BuSpar Lexapro Wellbutrin and p.r.n. Xanax Assessment & Plan (06/26/2021 5:39 PM PETROLEUM GEOLOGIST): Continue Lexapro all Butrans BuSpar and Xanax Assessment & Plan (07/17/2020 8:28 PM PETROLEUM GEOLOGIST): Continue wellbutrin, lexapro and xanax prn Assessment & Plan (04/14/2020 10:44 AM PETROLEUM GEOLOGIST): Continue Wellbutrin and Lexapro and prn Xanax [...] COVID. Assessment & Plan (05/30/2019 12:10 PM PETROLEUM GEOLOGIST): Increase the Lexapro to 20mg. Reassess in [...] 23 Assessment & Plan (06/14/2022 8:04 AM PETROLEUM GEOLOGIST): Weight/BMI is in healthy range. Continue healthy [...] 03/28/2024 Assessment & Plan (06/14/2022 8:31 AM PETROLEUM GEOLOGIST): Continues to use the gabapentin for persistent [...] provided Assessment & Plan (06/14/2022 8:31 AM PETROLEUM GEOLOGIST): Mammogram order provided Assessment & Plan (08/21/2021 10:48 AM CDT): Mammogram order provided. Will mail to her home address Immunization due 07/10/2021 11/01/2021 Assessment & Plan (07/10/2021 2:27 PM PETROLEUM GEOLOGIST): Talked about her immunization status and importance [...] 01/28/2021 Assessment & Plan (07/17/2020 8:30 PM PETROLEUM GEOLOGIST): Continue to push high protein in supplement to maintain/increase weight. Need for immunization against influenza 02/28/2020 07/16/2020 Assessment & Plan (02/28/2020 10:13 PM CDT): Updated in office today Abnormal mammogram of right breast 02/28/2020 11/01/2021 Assessment & Plan (04/14/2020 10:43 AM PETROLEUM GEOLOGIST): Stressed importance of f.u mammogram/US to avoid [...] 022 Assessment & Plan (07/17/2020 8:27 PM PETROLEUM GEOLOGIST): Encouraged healthy lifestyle, good nutrition and exercise. [...] 22 Assessment & Plan (05/25/2021 7:40 AM PETROLEUM GEOLOGIST): Weight/BMI is in healthy range. Continue healthy lifestyle to maintain. Assessment & Plan (08/11/2019 1:48 PM CDT): Weight/BMI is in healthy range. Continue healthy lifestyle to maintain. Other fatigue 05/30/2019 07/16/2020 Assessment & Plan (02/28/2020 10:11 PM CDT): Probably multifactorial. Check labs and followup to re-evaluate Assessment & Plan (05/30/2019 12:11 PM PETROLEUM GEOLOGIST): Probably multifactorial. Check labs and followup to re-evaluate Diabetes mellitus screening 05/30/2019 08/11/2019 Assessment & Plan (05/30/2019 12:09 PM PETROLEUM GEOLOGIST): Check labs Acute non-recurrent maxillary sinusitis 05/19/2019 08/11/2019 Assessment & Plan (05/30/2019 12:05 PM PETROLEUM GEOLOGIST): Improved on the left side but still having facial pressure and tongue lesion on the left. Will await bx results on the lesion to determine further followup. Assessment & Plan (05/19/2019 12:47 AM PETROLEUM GEOLOGIST): Start antibiotic, antihistamine, Mucinex and Steroid nasal spray. Push fluids. Rest. Supportive care. If sxs worsen or don\'t improve, pt is to followup in the office. Tongue lesion 05/19/2019 08/11/2019 Assessment & Plan (05/30/2019 12:15 PM PETROLEUM GEOLOGIST): Pt already has appointment with oral surgeon for biopsy of tongue lesion. This was set up by her dentist. Will await pathology report. If positive, discussed may need referral to ENT and will be glad to assist. Discussed options including ENT/[facility] physicians. She will consider. 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 Recheck in 2 weeks after completeing the antibiotic. If still present, will refer to ENT. BMI 28.0-28.9,adult 05/14/2019 08/11/19 20 Assessment & Plan (05/30/2019 12:07 PM PETROLEUM GEOLOGIST): Weight/BMI is in healthy range. Continue healthy lifestyle to maintain. Assessment & Plan (05/14/2019 1:50 PM PETROLEUM GEOLOGIST): Weight/BMI is in healthy range. Continue healthy [...] point and not able to support that. Encounters Date Type Department Care Team Description 08/21/2024 Orders Only [facility] [address] [place] [address] Armando Reyna MD Squamous cell carcinoma of ventral tongue (HCC) (Primary Dx) 08/20/2024 2:00 PM CDT Office Visit [facility] [address] [place] [address] Gala Jeffery, BRYANT Squamous cell carcinoma of ventral tongue (HCC) (Primary Dx) 08/20/2024 11:20 AM CDT Office Visit [facility] Department of Otolaryngology Head-Neck Division [address] [place] [phone] Rich Jakcson MD Squamous cell carcinoma of ventral tongue (CMS/HCC) (HCC) (Primary Dx) 08/06/2024 Results Follow-Up [facility] [address] [place] [address] [address] [place] [phone] Kristen Calabrese PA 08/06/2024 Orders Only [facility] [address] [place] [address] Provider, MD Kerri from Last 3 Months Immunizations Immunization Administration Dates Next Due Influenza, Quadrivalent, Spl it, Preservative Free, Intramuscular 2023,03/03/2021,02/27/2020 Influenza, Trivalent, Preser vative Free, Intramuscular 03/28/2024 Influenza, Unspecified 06/07/2022(Deferr ed: Patient Refused),03/28/2022 Dotspin (J&J) SARS-CoV-2 Vaccination 09/03/2020 Moderna Sars-cov-2 Monovalen t Vaccination (6-11 YRS) 03/28/2022 Pneumococcal Conjugate Pcv20 2023( Deferred: Patient Refused),05/07/2022(Deferred: Patient Refused) Surgical History Surgery Date Site/Laterality Comments TOTAL HIP ARTHROPLASTY Right CYST REMOVAL head NOSE SURGERY x2 CENTRAL LINE PLACEMENT > 5 YEARS 08/19/2019 N/A IR G TUBE PLACEMENT PERCUTANEOUS 10/01/2019 N/A Medical History Medical History Date Comments Chronic pain Cancer (HCC) tongue Family History Medical History Relation Name Comments Alcohol abuse Father COPD Father Heart disease Father Hyperlipidemia Father Hypertension Father Thyroid cancer Father Thyroid disease Father Colon cancer Maternal Grandfather Breast cancer Maternal Grandmother Mitral valve prolapse Mother Osteoporosis Mother Breast cancer Mother's Sister Diabetes Mother's Sister Lung cancer Paternal Grandfather Relation Name Status Comments Father Maternal Grandfather Maternal Grandmother Mother Alive Mother's Sister Paternal Grandfather Social History Tobacco Use Types Packs/Day Years [...] on file Legal Sex Female 5:59 PM PETROLEUM GEOLOGIST Gender Identity Not on file Sexual Orientation Not on file 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 Not on file Not on ahsok e Not on file Obstetrics History Last Filed Vital Signs Vital Sign Reading Time Taken Comments Blood Pressure 128/88 03/28/2024 7:09 AM PETROLEUM GEOLOGIST Pulse 75 03/28/2024 7:09 AM PETROLEUM GEOLOGIST Temperature 37.1 C (98.7 F) 03/28/2024 7:09 AM PETROLEUM GEOLOGIST Respiratory Rate 16 08/09/2021 10:53 AM CDT Oxygen Saturation 98% 03/28/2024 7:09 AM PETROLEUM GEOLOGIST Inhaled Oxygen Concentration - - Weight 75.8 kg (167 lb) 08/20/2024 1:42 PM CDT Height 163.2 cm (5' 4.25 ) 08/20/2024 11:41 AM C DT Body Mass Index 28.44 08/20/2024 11:41 AM CDT Plan of Treatment Health Maintenance Due Date Last Done Comments Hepatitis C Screening 1963 DTaP/Tdap/Td Vaccine (1 - Tdap) 1974 Hepatitis B Screening 1981 Pneumococcal vaccine <65 (1 of 2 - PCV) 1982 Zoster Vaccine (1 of 2) 1982 Lung Cancer Screening 2013 Covid-19 Vaccine (2 - Jansse n risk series) 04/25/2022 03/28/2022, 09/03/2020 Cervical Cancer Screening 09/12/20232022, 03/02/2016, 03/02/2016 Colon Cancer Screening-DNA Stool 01/06/2024 01/06/20 21 Depression Screening 03/28/2025 03/28/2024, 09/10/2023, 2023, Additional history exists Regular Well Visit/Exam 18-64 03/28/2025, 2023, 09/11/2022, Additional history exists Breast Cancer Screening-Mammogram 08/05/2025 08/05/2024, 01/26/2023, 11/01/2021, Additional history exists Influenza Vaccine Completed 03/28/2024, , 03/28/2022, Additional history exists Procedures Procedure Name Priority Date/Time Associated Diagnosis Comments HM MAMMOGRAPHY Routine 08/05/2024 11:48 AM CDT LIPID PANEL Routine 06/06/2024 6:25 AM PETROLEUM GEOLOGIST Mixed hyperlipidemia VITAMIN B12 Routine 06/06/2024 6:25 AM PETROLEUM GEOLOGIST Fatigue, unspecified type TSH Routine 06/06/2024 6:25 AM PETROLEUM GEOLOGIST Acquired hypothyroidism HEMOGLOBIN A1C Routine 06/06/2024 6:25 AM PETROLEUM GEOLOGIST Pre-diabetes COMPREHENSIVE METABOLIC PANEL Routine 06/06/2024 6:25 AM PETROLEUM GEOLOGIST Fatigue, unspecified type CBC WITH AUTO DIFFERENTIAL Routine 06/06/2024 6:25 AM PETROLEUM GEOLOGIST Fatigue, unspecified type PAP AND HIGH RISK HPV, REFLEX TO GENOTYPING Routine 09/11/2022 9:33 AM CDT Pap smear for cervical cancer screening STOOL DNA COLOGUARD Routine 01/05/2021 6:15 AM CDT Colon cancer screening from Last 3 Months or Most Recently Relevant to Health Maintenance Results * HM MAMMOGRAPHY (08/05/2024 11:48 AM CDT) Pathologist [facility] [place] Mammography Normal Impressions Latoya Lindsay, MA - 08/05/2024 11:48 AM CDT 1 No mammographic evidence of malignancy 2 Recommend routine screening mammography in one year BI-RADS Category 1:Negative us Historical Provider HEALTH MAINTENANCE Edited Result - Final * (ABNORMAL) CBC with auto differential (06/06/2024 6:25 AM PETROLEUM GEOLOGIST) Pathologist [facility] WBC 5.6 3.8 - 10.8 Thousand/u L [...] [facility] Blood 06/06/2024 6:25 AM PETROLEUM GEOLOGIST 06/06/2024 6:26 AM PETROLEUM GEOLOGIST Narrative [facility] - 06/07/2024 3:32 AM PETROLEUM GEOLOGIST FASTING:YES FASTING: YES Kristen COOPER LAB BLOOD ORDERABLES Final Result Performing Organization Address [facility] de Phone Number [facility] [address] [place] [address] * TSH (06/06/2024 6:25 AM PETROLEUM GEOLOGIST) TSH 3.63 0.40 - 4.50 mIU/L [facility] Blood 06/06/2024 6:25 AM PETROLEUM GEOLOGIST 06/06/2024 6:26 AM PETROLEUM GEOLOGIST Narrative [facility] - 06/07/2024 3:32 AM PETROLEUM GEOLOGIST FASTING:YES FASTING: YES Kristen COOPER LAB BLOOD ORDERABLES Final Result Performing Organization Address [facility] Co de Phone Number [facility] [address] [place] [address] * Hemoglobin A1c (06/06/2024 6:25 AM PETROLEUM GEOLOGIST) Hgb A1C 5.4 <5.7 % of total Hgb [facility] Comment: For the purpose of screening for the presence of diabetes: <5.7% Consistent with the absence of diabetes 5.7-6.4% Consistent with increased risk for diabetes (prediabetes) > or =6.5% Consistent with diabetes This assay result is consistent with a decreased risk of diabetes. Currently, no consensus exists regarding use of hemoglobin A1c for diagnosis of diabetes in children. According to [place] Diabetes Association (ADA) guidelines, hemoglobin A1c <7.0% represents optimal control in non- diabetic patients. Different metrics may apply to specific patient populations. Standards of Medical Care in Diabetes(ADA). Blood 06/06/2024 6:25 AM PETROLEUM GEOLOGIST 06/06/2024 6:26 AM PETROLEUM GEOLOGIST Narrative [facility] - 06/07/2024 3:32 AM PETROLEUM GEOLOGIST FASTING:YES FASTING: YES Kristen COOPER LAB BLOOD ORDERABLES Final Result [facility] [address] [place] [address] * Vitamin B12 (06/06/2024 6:25 AM PETROLEUM GEOLOGIST) Pathologist [facility] Vitamin B12 645 200 - 1,100 pg/mL [facility] Blood 06/06/2024 6:25 AM PETROLEUM GEOLOGIST 06/06/2024 6:26 AM PETROLEUM GEOLOGIST Narrative [facility] - 06/07/2024 3:32 AM PETROLEUM GEOLOGIST FASTING:YES FASTING: YES Kristen COOPER LAB BLOOD ORDERABLES Final Result [facility] [address] [place] [address] * (ABNORMAL) Lipid panel (06/06/2024 6:25 AM PETROLEUM GEOLOGIST) Pathologist [facility] Cholesterol 216(H) <200 mg/dL [facility] [...] LDL-C. Arthur ARREOLA et al. AMILCAR. 2013;310(19): 0500-6940 (http://education.Mapidy/faq/WRH771) Chol/HDL ratio 2.2 <5.0 (calc) [facility] Non-HDL, (LDL+VLDL) 116 <130 mg/dL (calc) [facility] Comment: For patients with diabetes plus 1 major ASCVD risk factor, treating to a non-HDL-C goal of <100 mg/dL (LDL-C of <70 mg/dL) is considered a therapeutic option. Blood 06/06/2024 6:25 AM PETROLEUM GEOLOGIST 06/06/2024 6:26 AM PETROLEUM GEOLOGIST Narrative [facility] - 06/07/2024 3:32 AM PETROLEUM GEOLOGIST FASTING:YES FASTING: YES us Kristen COOEPR LAB BLOOD ORDERABLES Final Result [facility] [address] [facility] [place] [address] * (ABNORMAL) Comprehensive metabolic panel (06/06/2024 6:25 AM PETROLEUM GEOLOGIST) [facility] Glucose 102(H) 65 - 99 mg/dL [facility] [...] [facility] Blood 06/06/2024 6:25 AM PETROLEUM GEOLOGIST 06/06/2024 6:26 AM PETROLEUM GEOLOGIST Narrative [facility] - 06/07/2024 3:32 AM PETROLEUM GEOLOGIST FASTING:YES FASTING: YES Kristen COOPER LAB BLOOD ORDERABLES Final Result [facility] [address] [id number] * Pap and High Risk HPV, reflex to Genotyping (09/11/2022 9:33 AM CDT) CLINICAL INFORMATION: [employer] [facility] Comment:CERVICAL CANCER SCRE EN LMP [employer] [facility] Comment:MENOPAUSE 48YO Previous Pap [employer] [facility] Comment:NONE GIVEN Prev. Bx [facility] Comment:NONE GIVEN SOURCE: [facility] Comment:Cervix, Endocervix Pap, specimen adequacy [facility] Comment: Satisfactory for evaluation. Endocervical/transformation zone component present. HPV interp [facility] Comment:Negative for intraep ithelial lesion or malignancy. Chief Executive Que [facility] Comment: TLS, CT(ASCP) CT Screening Location: [place] [address] [address] [facility] [address] Comment [facility] [employer] [facility] Comment: EXPLANATORY NOTE: The Pap is a [...] High Risk E6/E7 Not Detected NOT DETECTED [employer] [facility] Comment: Not Detected High Risk HPV types (16,18,31,33,35,39,45,51,52, 56,58,59,66,68) were not detected. Other HPV types which cause anogenital lesions may be present. The significance of the other types of HPV in malignant processes has not been established. Methodology: Real Time PCR Thin prep 09/11/2022 9:33 AM CDT 09/12/2022 1:37 AM CDT Kristen COOPER LAB CYTOLOGY ORDERABLES nal Result [facility] [place] [address] [place] [address] [employer] [address] [facility] LAURA Jackson [address] * Stool DNA - Cologuard (01/05/2021 6:15 AM CDT) Stool DNA - Cologuard Negative Negative [employer] (CLIA #:[id number]) Comment: NEGATIVE TEST RESULT. A negative Cologuard [...] screened with both Cologuard and colonoscopy. (Ismael Baron et al, N Engl J Med 2014;370(14):4003-8056) The normal value (reference range) for this assay is negative. COLOGUARD RE-SCREENING RECOMMENDATION: Periodic colorectal cancer screening is an important part of preventive healthcare for asymptomatic individuals at average risk for colorectal cancer. Following a negative Cologuard result, the [place] Cancer Society and U.S. Multi-Society Task Force screening guidelines recommend a Cologuard re-screening interval of 3 years. References: [place] [employer] Guideline for Colorectal Cancer Screening: https://www.cancer.org/cancer/djubn-vpdhol-vufmho/jizyjrmhv-wgghnkyzg-eybsmvv/ac s-rec ommendations.html.; Leobardo DK, Micheal CR, Veronica GaK, Colorectal Cancer Screening: Recommendations for Physicians and Patients from the U.S. Multi-Society Task Force on Colorectal Cancer Screening , Am J Gastroenterology 2017; 112:9619-1259. TEST DESCRIPTION: Composite algorithmic analysis of stool [...] (Ismael Chavez al, N Engl J Med 2014;370(14):8032-6267.) Cologuard may produce a false negative or false positive result (no colorectal cancer or precancerous polyp present at colonoscopy follow up). A negative Cologuard test result does not guarantee the absence of CRC or advanced adenoma (pre-cancer). The current Cologuard screening interval is every 3 years. ([place] [employer] Society and U.S. Multi-Society Task Force). Cologuard performance data in a 10,000 patient pivotal study using colonoscopy as the reference method can be accessed at the following location: www.[employer]/results. Additional description of the Cologuard test process, warnings and precautions can be found at www.[employer].com[employer]PeerSpacer[employer].com. Stool 01/05/2021 6:15 AM CDT 01/07/2021 5:14 PM CDT Kristen COOPER LAB BODY FLUIDS AND STOOLS ORDERABLES Final Result Performing Organization Address City/State/[facility] Co de Phone Number [employer] (CLIA #:[id number]) [place] [address] from Last 3 Months or Most Recently Relevant to Health Maintenance Insurance [facility] DONNELL [facility] TRADITIONAL [facility] ACCESS Advance Directives For more information, please contact: [phone] * Full Code (Latest Code Status on File) Date Activated Date Inactivated Comments 09/30/2019 9:45 AM 10/05/2019 8:36 PM * Full Code Date Activated Date Inactivated Comments 08/19/2019 1:27 PM 08/19/2019 7:49 PM * Full Code Date Activated Date Inactivated Comments 07/08/2019 8:19 PM 07/09/2019 10:08 PM Care Teams Signals Collector/Analyst Relationship Specialty Start Date End Date Kristen Calabrese PA [address] [facility] [address] [place] [address] PCP - General Internal Medicine 08/18/21 Rich Jackson MD Referring Physician Otolaryngology 07/18/19 Jozef Reyes DMD [address] [place] [address] Dentist Dental Detail Manager 07/18/19 Froylan Thakkar MD [address] [place] [address] Medical Oncologist/Manager Medical Medical Oncology 07/18/19
--- OUTSIDE RECORDS SUMMARY | 2024-08-29 14:03 | XMS_ITS | Encounter Summary ---
Author Organization [facility] Healthcare Address [address] [place] [address] Care Team Providers Care Cuff Stitcher Name Role Phone Kristen Calabrese Primary Care Provider [phone] Rich Jackson MD Unavailable [phone] Jozef Reyes DMD Unavailable [phone] Froylan Thakkar MD Unavailable [phone] Owen Epstein NP Primary Care Provider [phone] Kristen Calabrese Primary Care Provider [phone] Encounter Details Date Type Department Care Team (Late st Contact Info) Description 11/20/2019 Telephone [facility] Radiation Oncology [address] [facility] [place] [address] Elvira Jarvis MA Social History Tobacco Use [...] on file 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 Gender Identity Not on file Sexual Orientation Not on file 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 Not on file Not on ashok e Not on file documented as of this encounter Plan of Treatment Not on file documented as of this encounter Visit Diagnoses Not on filedocumented in this encounter Care Teams Cuff Stitcher Relationship Specialty Start Date End Date Kristen Calabrese PA [address] [place] [address] PCP - General Internal Medicine 09/24/18 07/03/21 Owen Epstein, BRYANT [address] [place] [address] PCP - General Nurse Practitioner 07/04/21 08/17/21 Kristen Calabrese PA [address] [place] [address] PCP - General Internal Medicine 08/18/21 Rich Jackson MD [address] [place] [address] Referring Physician Otolaryngology 07/18/19 Jozef Reyes DMD [address] [place] [address] Dentist Dental Harness Racing Handicapper 07/18/19 Froylan Thakkar MD [address] [place] [address] Medical Oncologist/Inspector [employer] Medical Oncology 07/18/19 documented as of this encounter
== END 2024-08-29 13:56 | disposition home or self-care (01) ==
PROVIDERS: PCP Physician Assistant
DX: C02.2 Malignant neoplasm of ventral surface of tongue (principal); R91.8 Other nonspecific abnormal finding of lung field
CPT/HCPCS: 71250